=== PATIENT | female | born 1945 | race Caucasian/White ===

== ENCOUNTER 2017-02-07 05:30 | Observation (INO) | payer OTHER, BC ==
[2017-02-07] VITALS (10 sets, daily range): BP systolic 126–140; BP diastolic 47–92
[~2017-02-07] VITALS: Ht 157.5 cm; Wt 79.8 kg
--- NOTE | ~2017-02-07 | H ---
[facility] [address] [place] [address] HISTORY AND PHYSICAL Name: REDRENEKATHLEEN KOCH Room #: 432-P DIS Lexus MLaylaR.#: [id number] Admission: 02/07/17 Attend Phys: Astrid Ford Discharge: 02/08/17 Date of : 45 Report #: [id number] THIS REPORT FOR: //name// For History and Physical, please see office documentation/handwritten note in the patient's medical record. By: 0834 Nish Andrea MD /
--- NOTE | ~2017-02-07 | O ---
[facility] [place] [address] OPERATIVE REPORT Name: RENE MOON Room #: 432-P [facility]..#: [id number] Admission: 02/07/17 Attend Phys: Nish Andrea MD Discharge: Date of : 45 Report #: [id number] THIS REPORT FOR: //name// CC: ADRYAN Andrea DATE OF SERVICE: 02/07/2017 PREOPERATIVE DIAGNOSIS: Stress urinary incontinence and cystocele. POSTOPERATIVE DIAGNOSIS: Stress urinary incontinence and cystocele. PROCEDURE: Pubovaginal sling with placement of Xenform graft and anterior repair. SURGEON: Nish Andrea MD. ANESTHESIA: General. OPERATIVE SUMMARY: The patient was brought to the operating room and administered general anesthesia. The patient was then placed in the lithotomy position. The patient's abdomen, perineum, and vagina were prepped and draped in the usual fashion. The patient received 1 gram IV Ancef preoperatively. A Lam catheter was placed. Local anesthesia using 1% lidocaine with epinephrine was infused into the vaginal midline. A midline incision was then made. Dissection was carried along the anterior fascia out the lateral pelvic sidewall. The endopelvic fascia was taken down using sharp and blunt dissection and the retropubic space was easily developed. The anterior fascia was then imbricated with interrupted 2-0 Vicryl sutures. The Capio Ruben's ligament fixation device was then placed in the retropubic space and Ruben's ligament was engaged with one attempt on either side. A 4 x 7 Xenform graft was pulled into, it was loaded on the Capio sutures using an 18 gauge needle. The graft was then laid down at the bladder and bladder neck and tied down to a tension to provide urethral and bladder support, but not to put any tension on these areas. The graft was secured with 3-0 chromic suture. It was copiously irrigated with antibiotic irrigation. There was excellent hemostasis. Gelfoam gauze was placed in the lateral . The vaginal midline incision was then closed using a running 2-0 Vicryl suture. The urine from the catheter was noted to be clear. The patient tolerated the procedure well and left the operating room in good condition. <ELECTRONICALLY SIGNED> By: Nish Andrea MD 02/08/17 0709 0816 1056 Nish Andrea MD /nt
[~2017-02-07 05:30] MED LIST: ALLOPURINOL 30300 M1 PO; AMLODIPINE BESYL5 MG; ASPIRIN EC81 M1 PO; BACTRIM DS TAB1 EACH PO; CARVEDILOL6.25 MG PO; FLOMAX0.4 MG PO; GLUCOTROL5 MG PO; HUMALOG100 UNIT/1 SUBQ; LANTUS SOL100 UNIT/1 SUBQ; LANTUSSOLASTAR SUBQ; LIPITOR40 MG PO; LOSARTAN-HCTZ1 EAC2 PO; MACROBID 100 M100 M2 PO; METFORMIN HCL500 MG PO; NORVASC 5 MG TAB5 MG PO; PRILOSEC 20 MG20 MG PO; PROTONIX40 M1 PO; TOLTERODINE TART4 MG PO
[2017-02-07 06:41] LABS: HEMATOCRIT 36.8 % (37.0-47.0)
[2017-02-07 06:52] LABS: CREATININE 1.2 mg/dL (0.6-1.0)
[2017-02-07 07:00] LABS: ALBUMIN 3.6 g/dL (3.4-5.0); TOTAL BILIRUBIN 0.4 mg/dL (<0.1-1.0); TOTAL PROTEIN 7.2 g/dL (6.4-8.2)
[2017-02-08 04:30] VITALS: BP 137/52
[2017-02-08 04:35] LABS: HEMOGLOBIN 11.2 gm/dL (12.0-15.0); MCH 29.3 pg (26.0-34.0); MCHC 32.8 g/dL (28.0-37.0); MCV 89.3 fL (80.0-100.0); RBC 3.81 mil/uL (4.20-5.00); RDW 16.5 % (10.5-14.5)
[2017-02-08 07:53] VITALS: BP 126/47
[2017-02-08 15:05] VITALS: BP 122/54
[2017-02-08 17:05] VITALS: BP 122/54
== END 2017-02-08 17:58 | disposition home or self-care (01) ==
LOC: TBA 05:30 → OR 05:30 → TBA 05:31 → 4E 09:23 → OR 09:23 → 4E 09:23 → OR 13:01 → 4E 02-08 17:58
PROVIDERS: Specialist
DX: N39.3 Stress incontinence (female) (male) (principal); N81.10 Cystocele, unspecified; E11.9 Type 2 diabetes mellitus without complications; I10 Essential (primary) hypertension; Z90.710 Acquired absence of both cervix and uterus; Z98.890 Other specified postprocedural states
CPT/HCPCS: 50010; 50101; 50386; 50613; 51321; 56526; 56531; 62110; 62900; 70005

== ENCOUNTER 2017-09-28 00:10 | Inpatient (IN) | payer OTHER, BC ==
[~2017-09-28] VITALS: Ht 157.5 cm; Wt 84.4 kg
--- NOTE | ~2017-09-28 | EKG ---
[address] [place] [address] ELECTROCARDIOGRAM REPORT Name: RENE MOON Room #: 170-6 ADM IN .R.#: [id number] Admission: 09/28/17 Attend Phys: Lexx Tucker Discharge: Date of : 45 Report #: [id number] THIS REPORT FOR: //name// [facility] ED Test Date: 2017-09-28 Test Time: 00:22:28 Pat Name: RENE MOON Department: Room: 170 Gender: F Edging Machine Setter: NICOLAS : 1945 Requested By: Tim Hamilton Order Number: [id number] MD: Tonio Bowles Measurements Intervals [place] Rate: 52 P: 56 KS: 204 QRS: 8 QRSD: 150 T: 22 QT: 509 QTc: 474 Interpretive Statements Sinus rhythm Right bundle branch block Compared to ECG 09/04/2016 15:58:28 No significant changes Electronically Signed On 09-28-2017 8:34:11 FILENET ADMIN by Tonio Bowles [email or web address] <ELECTRONICALLY SIGNED> By: Tonio Bowles MD, [facility] 09/28/17 0834 Tonio Bowles MD, [facility] /EPI
--- NOTE | ~2017-09-28 | H ---
[facility] [address] [place] [address] HISTORY AND PHYSICAL Name: RENE MOON Room #: 422-P ADM IN M.R.#: [id number] Admission: 09/28/17 Attend Phys: Lexx Tucker Discharge: Date of : 45 Report #: [id number] THIS REPORT FOR: //name// CC: Nnamdi Torres CHIEF COMPLAINT: Left ankle and back pain. HISTORY OF PRESENT ILLNESS: The patient is a 72-year-old female presented to the emergency room in the middle of the night after suffering a fall at home. She said for the last several days, maybe 2 weeks, she has had increasing back pain that has been radiating down her left leg. It has become very difficult for her to get up from a chair, bed or walk. Last night she was trying to get up to the bathroom, but had a hard time getting out of bed. Her granddaughter was able to help her up and into the bathroom. However, after about 15-20 minutes on the commode, she did not have the strength to stand up and her granddaughter called for EMS. Before they arrived, the granddaughter was able to help her stand at the edge of the door into the bathroom and that she stepped away to deal with the dogs, the patient lost her balance and fell to the floor. The patient denies any dizziness, lightheadedness, palpitations or any symptoms leading up to the fall, but just remember the next thing she was on the ground. She had more pain in the left ankle and was unable to stand and walk. She denied any loss of consciousness. X-rays have revealed a distal left fibular fracture. She had recently undergone some epidural steroid injections for her back pain and had a recent MRI without any significant change from previous studies. PAST MEDICAL HISTORY: Hypertension, diabetes type 2, GERD, urge incontinence, diverticulosis, chronic back pain due to spinal stenosis with radiculopathy, osteoarthritis, she has had steroid injections. PAST SURGICAL HISTORY: Appendectomy, hysterectomy, and bladder suspension. FAMILY HISTORY: Noncontributory. SOCIAL HISTORY: She lives at home. No chronic alcohol or tobacco use. ALLERGIES: CEPHALEXIN, HYDROCODONE, and METFORMIN. MEDICATIONS: Flomax, Detrol, Humalog with meals, allopurinol, Norvasc, aspirin, Coreg, Hyzaar, Protonix, and Lantus at bedtime. REVIEW OF SYSTEMS: She complains of nausea due to pain medicine. Otherwise, no headache, chest pain, shortness of breath, diarrhea, constipation, dysuria, or syncope. OBJECTIVE: VITAL SIGNS: Temperature 36.6, pulse 72, respirations 18, blood pressure [address] [address] HISTORY AND PHYSICAL Name: RENE MOON Room #: 422-P [facility] IN M.R.#: [id number] Admission: 09/28/17 Attend Phys: Lexx Tucker Discharge: Date of : 45 Report #: [id number] 140/64, and O2 sat 96% on room air. GENERAL: She is awake and alert, lying in the stretcher, in no distress. HEAD AND NECK: Unremarkable. LUNGS: Clear with no wheezing. HEART: Regular without murmur. ABDOMEN: Soft, normoactive bowel sounds. EXTREMITIES: No cyanosis, clubbing, or edema. The left ankle is in a posterior splint. NEUROLOGIC: Cranial nerves intact. Speech is fluent. Motor strength about 3/[address]s were reviewed without acute injury. X-ray of the left ankle shows an oblique distal left fibular fracture with mild displacement. Lab data is fairly unremarkable with creatinine 1.2. ASSESSMENT: 1. Acute left distal fibular fracture. 2. Lumbar spinal stenosis with radiculopathy. 3. Gait disturbance due to the above. 4. Accidental fall. 5. Hypertension. 6. Diabetes type 2. PLAN: She is unable to walk or stand at this point, therefore needs admission to the hospital. Medically, we need to optimize her diabetic control and pursue rehab options. I have spoken to Dr. Jalloh's office to see her in consultation in regards to the fracture, but this likely will be conservative treatment, remains to be seen what level of weightbearing she will be able to maintain. <ELECTRONICALLY SIGNED> By: Fredrick Vera MD 09/29/17 0831 1315 1413 Fredrick Vera MD /nt
--- NOTE | ~2017-09-28 | HC ---
[facility] [address] [place] [address] CONSULTATION Name: RENE MOON Room #: 422-P ADM IN M.R.#: [id number] Admission: 09/28/17 Attend Phys: Lexx Tucker Discharge: Date of : 45 Report #: [id number] THIS REPORT FOR: //name// CC: Nnamdi Torres CHIEF COMPLAINT: Left distal fibula fracture. HISTORY: This originally active and independent 72-year-old female was ambulating at home when she apparently stumbled and may have passed out. She fell injuring the left ankle. She sustained no other apparent injuries. Evaluation here revealed no other apparent significant medical problems. She does have a minimally displaced fracture of left distal fibula. The medial side shows a bit of calcification and old deformity, but no evidence of fracture or ligament injury there. At the time of my evaluation, she is comfortable and is anxious to try to advance activity. She is currently protected in a simple ankle splint. We have reviewed the x-rays and discussed treatment options including either nonsurgical management with cast or boot or surgical management with fixation of the distal fibula fracture. She prefers to avoid any surgery and feels confident she can protect the ankle with limited weightbearing over the coming six weeks. Given this, we have elected to go ahead with a fracture boot and we can start some organized therapy for limited weightbearing ambulation using a walker. I believe she is planning for temporary stay at an assisted living center. I would like to see her back in my office in about 2 weeks for followup x-ray. If there has been further problems or fracture displacement, then we may need to reconsider the option of surgical stabilization. <ELECTRONICALLY SIGNED> By: Fredrick Jalloh MD 09/30/17 1612 1146 2035 Fredrick Jalloh MD /nt
--- NOTE | ~2017-09-28 | D ---
[facility] [address] [place] [address] DISCHARGE SUMMARY Name: RENE MOON Room #: 422-P [facility] IN M.R.#: [id number] Admission: 09/28/17 Attend Phys: Lexx Tucker Discharge: Date of : 45 Report #: [id number] THIS REPORT FOR: //name// CC: Nnamdi Torres FINAL DIAGNOSES: 1. Closed left distal fibula fracture. 2. Accidental fall. 3. Diabetes type 2. 4. Hypertension. 5. Urinary tract infection. 6. Lumbar spinal stenosis. HOSPITAL COURSE: The patient was admitted to the emergency room after a fall at home. X-ray revealed a left distal closed fibula fracture. She was unable to stand or walk due to pain and pain in her back. She said pain in the lumbar spine has been escalating for about a week, and she was having trouble getting up from a chair. Medically, the only other intervention during her stay was that of urinary tract infection. Other home medications were continued. She had Lovenox for DVT prophylaxis. Blood sugars and blood pressure were stable. Dr. Jalloh saw her in consultation and placed her in a Cam walking boot with a 20-pound weight restriction on the left leg, to follow up in 2 weeks. PHYSICAL EXAMINATION: GENERAL: On the day of discharge, she was awake and alert. VITAL SIGNS: Stable. Blood pressure 137/63 and O2 sat 95% on room air. LUNGS: Clear. HEART: Regular. ABDOMEN: Soft, normoactive bowel sounds. EXTREMITIES: No edema with the left ankle in a boot. DISPOSITION: She will transfer to [facility] with diabetic diet. Physical and occupational therapy with a 20-pound weightbearing restriction on the left leg. Signed her transfer medications, I will follow her stay there and will send her back to Dr. Jalloh for followup. <ELECTRONICALLY SIGNED> By: Fredrick Vera MD 10/02/17 0839 0807 0855 Fredrick Vera MD /nt
[2017-09-28 00:13] VITALS: BP 144/57
[2017-09-28] MEDS ORDERED: PREDNISONE 20 M20 MG PO (01:03)
[2017-09-28] MEDS ORDERED: NORFLEX100 MG PO (01:03)
[2017-09-28] MEDS ORDERED: ACETAMINOPHEN-1 EAC1 PO (01:03)
[2017-09-28] MEDS ORDERED: HUMALOG100 UNIT/1 (02:02)
[2017-09-28 02:44] LABS: HEMATOCRIT 34.4 % (37.0-47.0); HEMOGLOBIN 11.6 gm/dL (12.0-15.0); MCHC 33.5 g/dL (28.0-37.0); MCV 89.5 fL (80.0-100.0); RBC 3.85 mil/uL (4.20-5.00); RDW 15.8 % (10.5-14.5); WBC 13.5 thou/uL (4.0-11.0)
[2017-09-28 03:01] LABS: ANION GAP 10 mmol/L (7-16); BUN 38 mg/dL (7-18); CHLORIDE 104 mmol/L (98-107); CO2 25 mmol/L (21-32); CREATININE 1.2 mg/dL (0.6-1.0); GLUCOSE 125 mg/dL (74-106); POTASSIUM 4.3 mmol/L (3.5-5.1); SODIUM 139 mmol/L (136-145)
[2017-09-28 03:05] LABS: TROPONIN-I < 0.04 ng/mL (<0.06)
[2017-09-28 04:14] LABS: URINE BILIRUBIN NEGATIVE (Negative); URINE BLOOD NEGATIVE (Negative); URINE CLARITY CLEAR; URINE COLOR YELLOW; URINE GLUCOSE-RANDOM* NEGATIVE (Negative); URINE KETONES NEGATIVE (Negative); URINE NITRITE-REFLEX NEGATIVE (Negative); URINE PROTEIN (DIPSTICK) NEGATIVE (Negative); URINE SPECIFIC GRAVITY 1.015 (1.005-1.035); URINE UROBILINOGEN 0.2 E.U./dl (0.2-1.0)
[2017-09-28 04:16] LABS: URINE LEUKOCYTES-REFLEX 1+ (Negative)
[2017-09-28 04:33] LABS: SQUAMOUS 0-3 Few /LPF (0-3)
[2017-09-28 04:34] LABS: BACTERIA-REFLEX >30 Many /HPF (None Seen); CASTS None Seen /LPF (None Seen); CRYSTALS None Seen /LPF (None Seen); URINE RBC 0-2 Rare /HPF (0-2); WBC CLUMPS Rare (None Seen)
[2017-09-28 16:47] VITALS: BP 129/50
[2017-09-28 17:11] VITALS: BP 127/55
[2017-09-28 20:00] VITALS: BP 144/51
[2017-09-29 04:00] VITALS: BP 152/59
[2017-09-29 06:19] LABS: CALCIUM 8.3 mg/dL (8.5-10.1); POTASSIUM 4.3 mmol/L (3.5-5.1)
[2017-09-29 06:28] LABS: HEMATOCRIT 33.4 % (37.0-47.0); HEMOGLOBIN 11.2 gm/dL (12.0-15.0); MCH 30.9 pg (26.0-34.0); MCHC 33.4 g/dL (28.0-37.0); MCV 92.6 fL (80.0-100.0); RBC 3.61 mil/uL (4.20-5.00); RDW 16.2 % (10.5-14.5); WBC 7.6 thou/uL (4.0-11.0)
[2017-09-29 08:00] VITALS: BP 154/56
[2017-09-29 16:00] VITALS: BP 148/53
[2017-09-29 20:00] VITALS: BP 146/58
[2017-09-30 04:14] VITALS: BP 138/48
[2017-09-30 07:40] VITALS: BP 148/50
[2017-09-30 15:25] VITALS: BP 147/58
[2017-09-30 20:59] VITALS: BP 145/64
[2017-10-01 05:06] VITALS: BP 137/63
[2017-10-01] MEDS ORDERED: CIPRO500 MG PO (08:02)
[2017-10-01] MEDS ORDERED: ACETAMINOPHEN-1 EAC1 PO (08:03)
[2017-10-01] MEDS ORDERED: ACETAMINOPHEN325 M1 PO (08:03)
[2017-10-01] MEDS ORDERED: NOVOLOG100 UNIT/1 SUBQ (08:04)
[2017-10-01] MEDS ORDERED: LEVEMIR SUBQ (08:04)
[2017-10-01 08:30] VITALS: BP 142/63
[2017-10-01 15:30] VITALS: BP 142/84
[2017-10-01 20:00] VITALS: BP 135/54
[2017-10-02 04:30] VITALS: BP 130/49
[2017-10-02 08:00] VITALS: BP 139/55
[2017-10-02] MEDS ORDERED: LEVEMIR SUBQ (08:39)
[2017-10-02] MEDS ORDERED: NOVOLOG100 UNIT/1 SUBQ (08:39)
[2017-10-02 16:00] VITALS: BP 142/48
[2017-10-02 19:43] VITALS: BP 137/51
[2017-10-03 04:13] VITALS: BP 141/56
[2017-10-03 07:35] VITALS: BP 145/58
[2017-10-03 15:55] VITALS: BP 148/60
[2017-10-03 19:36] VITALS: BP 119/45
[2017-10-04 04:05] VITALS: BP 136/48
[2017-10-04 08:00] VITALS: BP 154/53
[2017-10-04 08:27] VITALS: BP 154/53
== END 2017-10-04 11:21 | DRG 563 ==
LOC: ER 00:10 → 4E 02:24 → EROBS 02:24 → 4E 17:36
PROVIDERS: Emergency Medicine; Internal Medicine
PROC: 2W3RX1Z Immobilization of Left Lower Leg using Splint (ICD-10-PCS; principal; 2017-09-28)
DX: S82.832A Other fracture of upper and lower end of left fibula, initial encounter for closed fracture (principal); N39.0 Urinary tract infection, site not specified; E78.00 Pure hypercholesterolemia, unspecified; M19.90 Unspecified osteoarthritis, unspecified site; I10 Essential (primary) hypertension; K21.9 Gastro-esophageal reflux disease without esophagitis; M10.9 Gout, unspecified; K57.10 Diverticulosis of small intestine without perforation or abscess without bleeding; Z77.22 Contact with and (suspected) exposure to environmental tobacco smoke (acute) (chronic); G89.29 Other chronic pain; M54.9 Dorsalgia, unspecified; M54.16 Radiculopathy, lumbar region; M48.061 Spinal stenosis, lumbar region without neurogenic claudication; W18.39XA Other fall on same level, initial encounter; E11.9 Type 2 diabetes mellitus without complications; Z88.1 Allergy status to other antibiotic agents; Z88.8 Allergy status to other drugs, medicaments and biological substances; Z88.6 Allergy status to analgesic agent; Y99.8 Other external cause status; Y92.89 Other specified places as the place of occurrence of the external cause; Y93.89 Activity, other specified; Z90.49 Acquired absence of other specified parts of digestive tract; Z90.710 Acquired absence of both cervix and uterus; Z79.899 Other long term (current) drug therapy
CPT/HCPCS: 10084

== ENCOUNTER → 2018-03-07 | Outpatient (CLI) | payer OTHER, BC ==
[~2018-03-07] MED LIST changes: +ACETAMINOPHEN-1 EAC1 PO; +ACETAMINOPHEN325 M1 PO; +CIPRO500 MG PO; +HUMALOG100 UNIT/1; +LEVEMIR SUBQ; +NORFLEX100 MG PO; +NOVOLOG100 UNIT/1 SUBQ; +PREDNISONE 20 M20 MG PO
== END ==
LOC: ULTRA 10:27
DX: M79.662 Pain in left lower leg (principal); M79.89 Other specified soft tissue disorders; I87.1 Compression of vein

== ENCOUNTER 2019-11-22 23:35 | Inpatient (IN) | payer OTHER, BC ==
[~2019-11-22] VITALS: Ht 157.5 cm; Wt 83.9 kg
[2019-11-23] VITALS (8 sets, daily range): BP systolic 121–201; BP diastolic 44–69
[2019-11-23] MEDS ORDERED: HUMALOG100 UNIT/1 SUBQ (00:10)
[2019-11-23] MEDS ORDERED: LANTUS SUBQ (00:11)
[2019-11-23] MEDS ORDERED: NORVASC 2.5 MG2.5 M1 PO (00:12)
[2019-11-23] MEDS ORDERED: DETROL LA2 MG PO (00:12)
[2019-11-23] MEDS ORDERED: LOSARTAN-HCTZ1 EAC3 PO (00:13)
[2019-11-23] MEDS ORDERED: TRAMADOL 50 MG50 MG PO (00:13)
[2019-11-23 00:33] LABS: ABSOLUTE NEUTROPHILS 7.1 thou/uL (1.4-8.2); BASOPHILS 0.4 % (0.0-2.0); EOSINOPHILS 1.6 % (0.0-3.0); HEMATOCRIT 34.6 % (37.0-47.0); HEMOGLOBIN 11.1 gm/dL (12.0-15.0); LYMPHOCYTES 16.7 % (24.0-44.0); MCH 29.5 pg (26.0-34.0); MCHC 32.2 g/dL (28.0-37.0); MCV 91.6 fL (80.0-100.0); MONOCYTES 5.3 % (1.0-8.0); PLATELET COUNT 192 thou/uL (150-400); RBC 3.78 mil/uL (4.20-5.00); RDW 17.1 % (10.5-14.5); WBC 9.4 thou/uL (4.0-11.0)
[2019-11-23 00:45] LABS: ANION GAP 8 mmol/L (7-16); BUN 46 mg/dL (7-18); CALCIUM 9.2 mg/dL (8.5-10.1); CHLORIDE 103 mmol/L (98-107); CO2 25 mmol/L (21-32); CREATININE 1.6 mg/dL (0.6-1.0); GLUCOSE 152 mg/dL (74-106); POTASSIUM 4.5 mmol/L (3.5-5.1); SODIUM 136 mmol/L (136-145)
[2019-11-23 00:48] LABS: TROPONIN-I <0.06 ng/mL (<0.06)
--- NOTE | 2019-11-23 05:51 | NUR ---
RECEIVED REPORT FROM ER NURSE. PT ARRIVED TO ROOM AROUND 0240. SON AND DIL AT BEDSIDE. ADMISSION HX AND ASSESSMENT COMPLETED CHARTED. PT C/O MIDSTERNAL CHEST PAIN, A HEADACHE, AND NAUSEA UPON ADMISSION. NOTIFIED DR ERICH GARDUNO. ORDERS RECEIVED FOR NAUSEA AND PAIN MEDICATION. PT REQUESTED TO TAKE NAUSEA MEDICATION FIRST AND WAIT ON PAIN MEDICATION. COOL CLOTH APPLIED TO FOREHEAD. PT WAS ABLE TO GO TO SLEEP. AROUND 0500, PT WAS OFFERED PAIN MEDICATION AGAIN, BUT SHE DECLINED. PT STATED NAUSEA HAS GREATLY IMPROVED. VSS. FALL PRECAUTIONS IN PLACE. PROGRESSING SLOWLY TOWARD POC GOALS.
--- NOTE | 2019-11-23 16:28 | EKG ---
[facility] [place] [address] ELECTROCARDIOGRAM REPORT Name: RENE MOON Room #: 359-P ADM IN M.R.#: [id number] Admission: 11/23/19 Attend Phys: Lexx Tucker Discharge: Date of : 45 Report #: [id number] THIS REPORT FOR: cc: Nnamdi Torrse MD, Christopher B. MD Lundgren,Tonio Steele MD [facility] ~ THIS REPORT FOR: //name// [facility] ED Test Date: 2019-11-23 Test Time: 00:08:56 Pat Name: RENE MOON Department: Room: 359 Gender: F Clinic Md Associate: RAO : 1945 Requested By: Matthias Wayne Order Number: [id number] MD: Tonio Bowles Measurements Intervals [place] Rate: 61 P: 38 [place]: 226 QRS: -20 QRSD: 146 T: 26 QT: 463 QTc: 467 Interpretive Statements Sinus rhythm Prolonged [place] interval Right bundle branch block Compared to ECG 09/28/2017 00:22:28 No significant change was found Electronically Signed On 11-23-2019 16:27:48 GIG TENDER by Tonio Bowles [email or web address] <ELECTRONICALLY SIGNED> By: Tonio Bowles MD, [facility] 11/23/19 1627 0008 0008 Tonio Bowles MD, [facility] /EPI
[2019-11-24 00:58] VITALS: BP 141/48
--- NOTE | 2019-11-24 01:05 | NUR ---
Pt is resting quietly presently. NO s/s distress. VSS Afebrile. HR 56 SB on the monitor. Denied chest pain.
[2019-11-24 03:25] VITALS: BP 154/51
[2019-11-24 05:00] LABS: CALCIUM 8.5 mg/dL (8.5-10.1); CREATININE 1.2 mg/dL (0.6-1.0); POTASSIUM 4.7 mmol/L (3.5-5.1)
--- NOTE | 2019-11-24 05:07 | NUR ---
Pt resting quietly. NO s/s distress
--- NOTE | 2019-11-24 05:42 | NUR ---
Bladder scanned pt 333, and 374 ml in bladder.
[2019-11-24 07:27] VITALS: BP 155/50
--- NOTE | 2019-11-24 07:56 | H ---
[facility] [address] [place] [address] HISTORY AND PHYSICAL Name: RENE MOON Room #: 359-P ADM IN M.R.#: [id number] Admission: 11/23/19 Attend Phys: Lexx Tucker Discharge: Date of : 45 Report #: [id number] THIS REPORT FOR: cc: Nnamdi Torres MD,Fredrick Yuan MD, MD ~ CC: Nnamdi Torres DATE OF SERVICE: 11/23/2019 CHIEF COMPLAINT: Chest pain. HISTORY OF PRESENT ILLNESS: The patient is a 74-year-old female who was admitted to the Emergency Room after developing chest pain. She was seen in the office for routine visit yesterday or due to her chronic complaints of back pain. She was given a prescription for tramadol. She took one dose around noon and a second dose around 5. She said after the second dose she experienced some pain across her chest and upper back and lower back. She also felt heaviness or tightness in her throat as though it was difficult to breathe or swallow. She said she felt like her throat was closing off like she may be having an allergic reaction. She had no fever, chills, diaphoresis, radiating pain, nausea, vomiting or tingling. There was no pain up into the jaw up into the shoulders or back. PAST MEDICAL HISTORY: Fibromyalgia; chronic low back pain; dyslipidemia; osteoarthritis; hypertension; gout; diabetes type 2, insulin requiring; diverticulosis and spinal stenosis. PAST SURGICAL HISTORY: Unremarkable. FAMILY HISTORY: Noncontributory. SOCIAL HISTORY: She lives at home. No chronic alcohol or tobacco use. ALLERGIES: KEFLEX, HYDROCODONE and METFORMIN. She described more of a side effect to HYDROCODONE and true drug allergy. MEDICATIONS: Aspirin, Humalog, Lantus, Detrol, Norvasc, Hyzaar, tramadol, allopurinol, Coreg, Protonix and Flomax. REVIEW OF SYSTEMS: Denies headache, chest pain, shortness of breath, abdominal pain, nausea, vomiting, diarrhea, constipation, dysuria, syncope. OBJECTIVE: VITAL SIGNS: Temperature 36.6, pulse 58, respirations 18, blood pressure 150/63, O2 sat 98% on room air. [address] [address] HISTORY AND PHYSICAL Name: RENE MOON Room #: [address] [place] [address] IN .R.#: [id number] Admission: 11/23/19 Attend Phys: Lexx Tucker Discharge: Date of : 45 Report #: [id number] GENERAL: She is awake and alert, in no distress. HEAD AND NECK: Unremarkable. LUNGS: Clear. HEART: Regular. ABDOMEN: Soft, normoactive bowel sounds. EXTREMITIES: No edema. NEUROLOGIC: Motor strength 4/5 throughout. LABORATORY DATA: Creatinine is 1.6. Troponin was negative. Chest x-ray negative. ASSESSMENT: 1. Chest pain, possible drug side effect. 2. Lumbar spinal stenosis. 3. Fibromyalgia. 4. Chronic low back pain. 5. Hypertension. 6. Diabetes type 2. 7. Prerenal azotemia due to medication effect. PLAN: I will discontinue the tramadol for now. She has had no symptoms overnight. EKG was unremarkable. Troponin negative. Clinically, it seems less likely of acute coronary syndrome. We will continue medications from home with holding the Hyzaar at this point and repeat her lab work. <ELECTRONICALLY SIGNED> By: Fredrick Vera MD 11/24/19 0756 1009 1032 Fredrick Vera MD /nt
[2019-11-24 09:23] VITALS: BP 155/50
--- NOTE | 2019-11-24 09:35 | NUR ---
Discharge instructions gone over with PT and son at the beside. Both verbalized understanding and expressed eagerness to leave. PT left unit via wheelchair with Ronald MENDEZ.
[2019-11-24 09:37] VITALS: BP 155/50
--- NOTE | 2019-11-26 13:13 | D ---
[facility] [address] [place] [address] DISCHARGE SUMMARY Name: RENE MOON Room #: 359-P [facility] IN M.R.#: [id number] Admission: 11/23/19 Attend Phys: Lexx Tucker Discharge: 11/24/19 Date of : 45 Report #: [id number] THIS REPORT FOR: cc: Nnamdi Torres MD, Christopher B. MD Peters, David W. MD ~ THIS REPORT FOR: //name// CC: Nnamdi Torres FINAL DIAGNOSES: 1. Chest pain. 2. Diabetes type 2. 3. Hypertension. 4. Prerenal azotemia. HOSPITAL COURSE: The patient was admitted to the Emergency Room after developing chest pain following 2 doses of tramadol. She described what may have been an allergic type reaction to tramadol with a sensation of difficulty breathing with swelling of her throat or what she describes as "her throat closing" and some heaviness across her chest. She came to the Emergency Room, her EKG was unremarkable and troponin was negative. She was treated symptomatically and watched 2 nights with no further chest pain. No tachyarrhythmias, usual medications were continued. Prerenal azotemia was noted likely from hydrochlorothiazide. She was walking the halls with no symptoms and remained pain free the rest of her stay. PHYSICAL EXAMINATION: GENERAL: On the day of discharge, she was awake and alert. VITAL SIGNS: Stable vital signs. LUNGS: Clear. HEART: Regular. ABDOMEN: Soft, normoactive bowel sounds. EXTREMITIES: No edema. LABORATORY DATA: Follow up creatinine was improved. DISPOSITION: To be discharged to home with diabetic diet, activity as tolerated, resume all home medications and follow up with Dr. Torres in 1 week. <ELECTRONICALLY SIGNED> By: Fredrick Vera MD 11/26/19 1313 0756 0800 Fredrick Vera MD /nt
== END 2019-11-24 09:40 | disposition home or self-care (01) | DRG 313 ==
LOC: ER 23:35 → EROBS 11-23 01:24 → 3W 11-23 01:24
PROVIDERS: Emergency Medicine; Internal Medicine Geriatric Medicine; ADMIT Internal Medicine
DX: R07.9 Chest pain, unspecified (principal); M54.9 Dorsalgia, unspecified; G89.29 Other chronic pain; M79.7 Fibromyalgia; E78.00 Pure hypercholesterolemia, unspecified; M16.10 Unilateral primary osteoarthritis, unspecified hip; I10 Essential (primary) hypertension; K21.9 Gastro-esophageal reflux disease without esophagitis; M10.9 Gout, unspecified; M19.90 Unspecified osteoarthritis, unspecified site; R79.89 Other specified abnormal findings of blood chemistry; E11.9 Type 2 diabetes mellitus without complications; K57.90 Diverticulosis of intestine, part unspecified, without perforation or abscess without bleeding; M48.061 Spinal stenosis, lumbar region without neurogenic claudication; E78.5 Hyperlipidemia, unspecified; Z79.82 Long term (current) use of aspirin; Z87.440 Personal history of urinary (tract) infections; Z90.89 Acquired absence of other organs; Z90.710 Acquired absence of both cervix and uterus; Z79.899 Other long term (current) drug therapy; Z88.1 Allergy status to other antibiotic agents; Z88.5 Allergy status to narcotic agent; Z88.8 Allergy status to other drugs, medicaments and biological substances
CPT/HCPCS: 10879

== ENCOUNTER → 2019-12-17 | Outpatient (CLI) | payer OTHER, BC ==
[~2019-12-17] VITALS: Ht 157.5 cm; Wt 85.2 kg
[~2019-12-17] MED LIST changes: +CLOPIDOGREL75 MG PO; +DETROL LA2 MG PO; +LANTUS SUBQ; +LOSARTAN-HCTZ1 EAC3 PO; +NORVASC 2.5 MG2.5 M1 PO; +TRAMADOL 50 MG50 MG PO
[2019-12-17 07:48] VITALS: BP 189/77
== END | disposition home or self-care (01) ==
LOC: CATH 06:49
DX: I70.211 Atherosclerosis of native arteries of extremities with intermittent claudication, right leg (principal); I12.9 Hypertensive chronic kidney disease with stage 1 through stage 4 chronic kidney disease, or unspecified chronic kidney disease; E11.22 Type 2 diabetes mellitus with diabetic chronic kidney disease; I25.10 Atherosclerotic heart disease of native coronary artery without angina pectoris; K21.9 Gastro-esophageal reflux disease without esophagitis; M10.9 Gout, unspecified; M19.90 Unspecified osteoarthritis, unspecified site; M79.7 Fibromyalgia; Z98.890 Other specified postprocedural states; Z79.899 Other long term (current) drug therapy; Z90.49 Acquired absence of other specified parts of digestive tract; Z90.710 Acquired absence of both cervix and uterus; Z90.711 Acquired absence of uterus with remaining cervical stump; Z79.4 Long term (current) use of insulin

== ENCOUNTER → 2020-01-18 | Outpatient (CLI) | payer OTHER, BC | LOC: SJCVC 11:02 | DX: R94.31 Abnormal electrocardiogram [ECG] [EKG] (principal); R00.1 Bradycardia, unspecified; I45.10 Unspecified right bundle-branch block; I25.10 Atherosclerotic heart disease of native coronary artery without angina pectoris; I10 Essential (primary) hypertension; E78.5 Hyperlipidemia, unspecified; E11.51 Type 2 diabetes mellitus with diabetic peripheral angiopathy without gangrene; I65.23 Occlusion and stenosis of bilateral carotid arteries; Z79.4 Long term (current) use of insulin ==

== ENCOUNTER → 2020-03-18 | Outpatient (CLI) | payer OTHER, BC | LOC: SJCVC 11:12 | PROVIDERS: ATTEND Internal Medicine | DX: I45.10 Unspecified right bundle-branch block (principal); R00.1 Bradycardia, unspecified; I25.10 Atherosclerotic heart disease of native coronary artery without angina pectoris; I10 Essential (primary) hypertension; I73.9 Peripheral vascular disease, unspecified; E78.5 Hyperlipidemia, unspecified; I65.23 Occlusion and stenosis of bilateral carotid arteries; E11.51 Type 2 diabetes mellitus with diabetic peripheral angiopathy without gangrene; Z79.4 Long term (current) use of insulin; K21.9 Gastro-esophageal reflux disease without esophagitis; M10.9 Gout, unspecified; Z90.710 Acquired absence of both cervix and uterus; Z79.899 Other long term (current) drug therapy ==

== ENCOUNTER → 2020-03-27 | Outpatient (CLI) | payer OTHER, BC ==
[~2020-03-27] MED LIST changes: +CARVEDILOL6.25 M1 PO; +PLAVIX 75 MG TA75 MG PO
== END ==
LOC: SJCVCIMAG 09:02
PROVIDERS: ATTEND Nuclear Medicine Nuclear Cardiology
DX: E11.51 Type 2 diabetes mellitus with diabetic peripheral angiopathy without gangrene (principal); I73.9 Peripheral vascular disease, unspecified; I25.10 Atherosclerotic heart disease of native coronary artery without angina pectoris; I10 Essential (primary) hypertension; E78.00 Pure hypercholesterolemia, unspecified; Z79.4 Long term (current) use of insulin; Z79.899 Other long term (current) drug therapy

== ENCOUNTER → 2020-04-04 | Outpatient (CLI) | payer OTHER, BC | LOC: LAB 09:26 | PROVIDERS: ATTEND Student in an Organized Health Care Education/Training Program | DX: Z01.812 Encounter for preprocedural laboratory examination (principal); Z11.59 Encounter for screening for other viral diseases ==

== ENCOUNTER 2020-04-10 09:50 | Inpatient (IN) | payer OTHER, BC ==
[2020-04-04 10:37] LABS: ABSOLUTE NEUTROPHILS 3.4 thou/uL (1.4-8.2); BASOPHILS 0.9 % (0.0-2.0); EOSINOPHILS 3.7 % (0.0-3.0); HEMATOCRIT 33.3 % (37.0-47.0); MCH 30.3 pg (26.0-34.0); MCHC 33.1 g/dL (28.0-37.0); MCV 91.5 fL (80.0-100.0); MONOCYTES 6.8 % (1.0-8.0); PLATELET COUNT 166 thou/uL (150-400); POLYS 60.6 % (36.0-66.0); RBC 3.64 mil/uL (4.20-5.00); RDW 17.6 % (10.5-14.5); WBC 5.6 thou/uL (4.0-11.0)
[2020-04-04 10:53] LABS: APTT 24.5 Seconds (24.5-32.8)
[2020-04-04 10:59] LABS: ALBUMIN 3.3 g/dL (3.4-5.0); CALCIUM 8.2 mg/dL (8.5-10.1); CREATININE 1.4 mg/dL (0.6-1.0); POTASSIUM 4.1 mmol/L (3.5-5.1); TOTAL BILIRUBIN 0.4 mg/dL (0.2-1.0); TOTAL PROTEIN 6.7 g/dL (6.4-8.2)
[2020-04-04 11:23] LABS: URINE BILIRUBIN NEGATIVE (Negative); URINE BLOOD TRACE (Negative); URINE COLOR YELLOW; URINE GLUCOSE-RANDOM* NEGATIVE (Negative); URINE KETONES NEGATIVE (Negative); URINE LEUKOCYTES-REFLEX 1+ (Negative); URINE NITRITE-REFLEX NEGATIVE (Negative); URINE PROTEIN (DIPSTICK) 2+ (Negative); URINE SPECIFIC GRAVITY 1.025 (1.005-1.035); URINE UROBILINOGEN 0.2 E.U./dl (0.2-1.0)
[2020-04-04 11:24] LABS: URINE CLARITY SL HAZY
[2020-04-04 11:28] LABS: BACTERIA-REFLEX >30 Many /HPF (None Seen); CRYSTALS None Seen /LPF (None Seen); SQUAMOUS >10 Many /LPF (0-3); URINE RBC 0-2 Rare /HPF (0-2); URINE WBC-REFLEX >25 Many /HPF (0-5)
[2020-04-05 00:06] LABS: GLYCOHEMOGLOBIN (HGB A1C) 6.1 % (4.8-5.6)
[~2020-04-10] VITALS: Ht 157.5 cm; Wt 88.0 kg
--- NOTE | ~2020-04-10 | HC ---
[facility] [address] [place] [address] CONSULTATION Name: RENE MOON Room #: 212-P [facility] IN M.R.#: [id number] Admission: 04/29/20 Attend Phys: Donato Willis MD Discharge: 05/05/20 Date of : 45 Report #: [id number] THIS REPORT FOR: cc: Nnamdi Torres MD,Fredrick Mcrae MD, MD ~ CC: Nnamdi Willis DATE OF SERVICE: 05/05/2020 HISTORY OF PRESENT ILLNESS: This is a 74-year-old white female who was admitted with coronary artery disease, unresponsive to conservative measures. She underwent coronary artery bypass grafting on 04/29/2020. She has had some problems with some acute renal insufficiency, question of acute tubular necrosis, which is being monitored. This is noted to be improving. She has some postoperative anemia, history of hypertension, and diabetes mellitus. She has a prior history of neurogenic bladder with recurrent urinary tract infections and herself. We are seeing her in rehabilitation medicine consultation. PAST MEDICAL HISTORY: Includes peripheral vascular disease, status post superficial femoral artery stenting, history of UTI, fibromyalgia, and gout. MEDICATIONS: Please see the full medication listing. ALLERGIES: As noted. HABITS: Please see the listing as noted. SOCIAL HISTORY: Lives in a house with , one step in. Grandson is also there. She has closely involved son. She was premorbidly ambulatory without gait aids. REVIEW OF SYSTEMS: Did not offer any current complaints of chest pain, shortness of breath, or abdominal discomfort. PHYSICAL EXAMINATION: GENERAL: She is a pleasant 74-year-old overweight white female, in no obvious distress. VITAL SIGNS: Last recorded temperature 97.6, pulse 90, respirations 18, blood pressure 141/46. The patient is alert. HEENT: Appeared to be benign. NEUROLOGIC: Cranial nerves are grossly intact. Facies are symmetric. EXTREMITIES: He has functional range of motion of both upper extremities. Strength is grade 4-/5. I just did a limited testing as she has the [facility] [address] [place] [address] CONSULTATION Name: RENE MOON Room #: 212-P [facility] IN M.R.#: [id number] Admission: 04/29/20 Attend Phys: Donato Willis MD Discharge: 05/05/20 Date of : 45 Report #: [id number] precautions. Her midline sternal incision is dressed. There is no focal calf swelling. Gallbladder examination deferred. Lower extremities, no focal calf swelling. Trace to no distal lower extremity edema. Strength is probably a grade 4+/5. She does need a little min assist with standing, but then once up, is able to ambulate and actually ambulated 80 feet without an assistive device, total was about 120 feet. ASSESSMENT: A 74-year-old white female with the following problem list: 1. Generalized weakness and debilitation. 2. Coronary artery disease, status post coronary artery bypass grafting. 3. Acute renal insufficiency, which is improving. 4. Hypertension. 5. Postop anemia. 6. Neurogenic bladder with recurrent urinary tract infections. 7. Diabetes mellitus. 8. Peripheral vascular disease. 9. History of fibromyalgia. 10. History of gout. PLAN: The patient appears to be doing better from a functional mobility and ADLs standpoint. Would anticipate that she should be able to return directly home without needing an acute in-hospital inpatient rehabilitation stay as she further medically stabilizes. Thank you for asking us to assist in this patient's stay. By: 1123 [id number] Fredrick Smith MD /PMT
[2020-04-19] MEDS ORDERED: CARVEDILOL12.5 MG PO (09:30)
[2020-04-19] MEDS ORDERED: IMDUR 60 MG TAB60 M1 PO (09:30)
[2020-04-19] MEDS ORDERED: NITROSTAT0.4 M1 SUBLING (09:33)
[2020-04-21] MEDS ORDERED: CARVEDILOL12.5 MG PO (15:46)
[2020-04-21] MEDS ORDERED: ISOSORBIDE MONO60 M1 PO (16:00)
[2020-04-24] MEDS ORDERED: GABAPENTIN100 MG PO (13:08)
[2020-04-24 13:11] LABS: URINE BILIRUBIN NEGATIVE (Negative); URINE BLOOD NEGATIVE (Negative); URINE CLARITY CLEAR; URINE COLOR YELLOW; URINE GLUCOSE-RANDOM* NEGATIVE (Negative); URINE KETONES NEGATIVE (Negative); URINE LEUKOCYTES-REFLEX 1+ (Negative); URINE NITRITE-REFLEX NEGATIVE (Negative); URINE PROTEIN (DIPSTICK) 2+ (Negative); URINE SPECIFIC GRAVITY 1.025 (1.005-1.035); URINE UROBILINOGEN 0.2 E.U./dl (0.2-1.0)
[2020-04-24 14:07] LABS: BACTERIA-REFLEX >30 Many /HPF (None Seen); CASTS None Seen /LPF (None Seen); CRYSTALS None Seen /LPF (None Seen); SQUAMOUS 0-3 Few /LPF (0-3); URINE WBC-REFLEX >25 Many /HPF (0-5)
[2020-04-24 14:08] LABS: URINE RBC None Seen /HPF (0-2)
[2020-04-24 15:13] LABS: ABSOLUTE NEUTROPHILS 3.3 thou/uL (1.4-8.2); BASOPHILS 0.6 % (0.0-2.0); EOSINOPHILS 3.3 % (0.0-3.0); HEMATOCRIT 28.3 % (37.0-47.0); HEMOGLOBIN 9.2 gm/dL (12.0-15.0); LYMPHOCYTES 25.1 % (24.0-44.0); MCHC 32.6 g/dL (28.0-37.0); MCV 92.1 fL (80.0-100.0); MONOCYTES 7.8 % (1.0-8.0); PLATELET COUNT 149 thou/uL (150-400); POLYS 63.2 % (36.0-66.0); RBC 3.07 mil/uL (4.20-5.00); RDW 17.7 % (10.5-14.5); WBC 5.2 thou/uL (4.0-11.0)
[2020-04-24 15:29] LABS: APTT 27.9 Seconds (24.5-32.8); PROTIME 10.3 Seconds (9.3-11.4)
[2020-04-24 15:32] LABS: ALBUMIN 3.1 g/dL (3.4-5.0); CALCIUM 8.2 mg/dL (8.5-10.1); CREATININE 1.4 mg/dL (0.6-1.0); POTASSIUM 4.5 mmol/L (3.5-5.1); TOTAL BILIRUBIN 0.2 mg/dL (0.2-1.0); TOTAL PROTEIN 6.3 g/dL (6.4-8.2)
[2020-04-25 04:06] LABS: GLYCOHEMOGLOBIN (HGB A1C) 5.8 % (4.8-5.6)
--- NOTE | 2020-04-25 09:07 | EKG ---
[facility] [address] [place] [address] ELECTROCARDIOGRAM REPORT Name: RENE MOON Room #: PRE IN M.R.#: [id number] Admission: Attend Phys: Donato Willis MD Discharge: Date of : 45 Report #: [id number] THIS REPORT FOR: cc: Nnamdi Torres MD, Christopher B. MD Lundgren,Tonio Steele MD [facility] ~ THIS REPORT FOR: //name// [facility] Test Date: 2020-04-24 Test Time: 13:35:06 Pat Name: RENE MOON Department: Room: Gender: F Fire Adjuster: allan : 1945 Requested By: Donato Willis Order Number: [id number] MD: Tonio Bowles Measurements Intervals [place] Rate: 49 P: 60 [place]: 153 QRS: -12 QRSD: 133 T: 23 QT: 476 QTc: 430 Interpretive Statements Sinus bradycardia Right bundle branch block Compared to ECG 04/18/2020 07:36:16 No significant change was found Electronically Signed On 04-25-2020 9:07:04 CDT by Tonio Bowles [email or web address] <ELECTRONICALLY SIGNED> By: Tonio Bowles MD, [facility] 04/25/20 0907 1335 1335 Tonio Bowles MD, [facility] /EPI
[2020-04-29] VITALS (23 sets, daily range): BP systolic 89–154; BP diastolic 42–55
--- NOTE | 2020-04-29 07:40 | HC ---
[facility] [address] [place] [address] CONSULTATION Name: RENE MOON Room #: 150-1 ADM IN M.R.#: [id number] Admission: 04/29/20 Attend Phys: Donato Willis MD Discharge: Date of : 45 Report #: [id number] THIS REPORT FOR: cc: Nnamdi Torres MD,Tonio Martinez MD, MD [facility] ~ CC: Nnamdi Willis DATE OF SERVICE: 04/29/2020 REASON FOR VISIT: Coronary artery disease. HISTORY OF PRESENT ILLNESS: The patient is a 74-year-old woman with hypertension, diabetes, dyslipidemia, peripheral vascular disease with bilateral SFA interventions and multivessel coronary artery disease with normal ejection fraction. She now presents for elective coronary artery bypass grafting. The patient has had a complicated past couple of months with the identification of severe bilateral peripheral disease with atherectomy and stenting. Coronary angiography in 11/2019 demonstrated multivessel disease and normal ejection fraction, although due to COVID issues at that time, her surgery has been treated medically with plans for bypass surgery for which she now presents. She has been experiencing limiting exertional breathlessness. No heart failure symptoms including orthopnea, paroxysmal nocturnal dyspnea, or lower extremity edema. No history of palpitations, near syncope or syncope. She was admitted about 10 days ago with renal insufficiency, likely related to Bactrim use for a urinary tract infection. Her kidney function normalized. She has a history of diabetes, hypertension and dyslipidemia. There is a family history of premature coronary artery disease. No history of tobacco dependency. ALLERGIES: KEFLEX, LORTAB, TRAMADOL. PAST MEDICAL HISTORY: Medical records have been reviewed and include ankle fracture with surgery, hysterectomy, bilateral knee arthroscopy, hypertension, diabetes, dyslipidemia, reflux disease, gout, overactive bladder. MEDICATIONS: Allopurinol 300 mg daily, aspirin 81 mg daily, atorvastatin 40 mg daily, carvedilol 6.25 mg twice daily, Plavix, Neurontin 100 mg 3 times a day, Lantus 33 units at night, Humalog 12 units 3 times a day, losartan HCT 100/12.5 one daily, Protonix 20 mg daily, Flomax 0.4 mg daily as her Coreg dose should be 12.5 mg twice daily. SOCIAL HISTORY: She is nonsmoker, nondrinker. [address] [address] CONSULTATION Name: RENE MOON Room #: 150-1 ADM IN M.R.#: [id number] Admission: 04/29/20 Attend Phys: Donato Willis MD Discharge: Date of : 45 Report #: [id number] FAMILY HISTORY: Notable for peripheral vascular disease and coronary artery disease. REVIEW OF SYSTEMS: All systems negative except as that noted above. PHYSICAL EXAMINATION: GENERAL: A pleasant woman in no distress. VITAL SIGNS: Blood pressure is 150/80, heart rate of 50 and regular, 5 feet 2 inches tall, 84 kilos. HEENT: There are neither xanthelasma, subcutaneous xanthomata, oral mucosal, digital cyanosis or kyphoscoliosis present. CHEST: Clear to auscultation and percussion. CARDIAC: Regular rate and rhythm with normal S1, S2. No murmurs, gallops or rubs. ABDOMEN: Soft and nontender. EXTREMITIES: Without cyanosis, clubbing or edema. Radial pulses are 2+. NEUROLOGIC: She is alert with a nonfocal exam. LABORATORY DATA: EKG, sinus bradycardia with right bundle-branch block. IMPRESSION: 1. Coronary artery disease with progressive angina. 2. Hypertension. 3. Dyslipidemia. 4. Peripheral vascular disease with bilateral SFA interventions. 5. Moderate bilateral carotid stenoses. 6. Diabetes. RECOMMENDATIONS: 1. Perioperative beta blockade. 2. Surgical revascularization. 3. Continued efforts towards aggressive risk factor modification. I will follow along with you. Thank you for asking me to participate in the patient's care. <ELECTRONICALLY SIGNED> By: Tonio Bowles MD, FACC 04/29/20 0740 1713 1929 Tonio Bowles MD, FACC /nt
[2020-04-29 13:15] LABS: MCH 30.1 pg (26.0-34.0); MCHC 33.4 g/dL (28.0-37.0); RBC 2.29 mil/uL (4.20-5.00); WBC 7.6 thou/uL (4.0-11.0)
[2020-04-29 13:18] LABS: HEMATOCRIT 20.6 % (37.0-47.0); HEMOGLOBIN 6.9 gm/dL (12.0-15.0)
[2020-04-29 13:33] LABS: PROTIME 17.4 Seconds (9.3-11.4)
[2020-04-29 13:34] LABS: APTT 32.2 Seconds (24.5-32.8); INR 1.7
[2020-04-29 13:49] LABS: POC BE -1 mmol/L (-2.0 to +3.0); POC CA IONIZED 4.8 mg/dL (4.5-5.3); POC GLUCOSE 109 mg/dL (70-99); POC HCO3 22.9 mmol/L (22.0-26.0); POC HEMOGLOBIN 8.8 g/dL (12.0-15.0); POC POTASSIUM 4.3 mmol/L (3.5-5.1); POC SODIUM 139 mmol/L (136-145); POC pCO2 33.1 mmHg (35.0-45.0); POC pH 7.448 (7.360-7.450)
[2020-04-29 13:50] LABS: POC BE -2 mmol/L (-2.0 to +3.0); POC CA IONIZED 4.5 mg/dL (4.5-5.3); POC GLUCOSE 116 mg/dL (70-99); POC HEMOGLOBIN 6.8 g/dL (12.0-15.0); POC SODIUM 140 mmol/L (136-145); POC pCO2 33.6 mmHg (35.0-45.0); POC pH 7.425 (7.360-7.450)
[2020-04-29 13:50] LABS: POC BE 1 mmol/L (-2.0 to +3.0); POC CA IONIZED 4.1 mg/dL (4.5-5.3); POC GLUCOSE 151 mg/dL (70-99); POC HCO3 25.7 mmol/L (22.0-26.0); POC HEMOGLOBIN 7.5 g/dL (12.0-15.0); POC POTASSIUM 5.8 mmol/L (3.5-5.1); POC SODIUM 140 mmol/L (136-145); POC pCO2 41.7 mmHg (35.0-45.0); POC pH 7.397 (7.360-7.450)
[2020-04-29 13:50] LABS: POC BE -4 mmol/L (-2.0 to +3.0); POC CA IONIZED 4.4 mg/dL (4.5-5.3); POC GLUCOSE 140 mg/dL (70-99); POC HCO3 21.1 mmol/L (22.0-26.0); POC HEMOGLOBIN 8.8 g/dL (12.0-15.0); POC POTASSIUM 4.8 mmol/L (3.5-5.1); POC SODIUM 140 mmol/L (136-145); POC pCO2 35.3 mmHg (35.0-45.0); POC pH 7.385 (7.360-7.450)
[2020-04-29 13:50] LABS: POC BE -2 mmol/L (-2.0 to +3.0); POC CA IONIZED 3.9 mg/dL (4.5-5.3); POC GLUCOSE 123 mg/dL (70-99); POC HCO3 21.9 mmol/L (22.0-26.0); POC HEMOGLOBIN 6.5 g/dL (12.0-15.0); POC POTASSIUM 4.9 mmol/L (3.5-5.1); POC SODIUM 138 mmol/L (136-145); POC pH 7.458 (7.360-7.450)
[2020-04-29 13:50] LABS: POC BE 1 mmol/L (-2.0 to +3.0); POC CA IONIZED 4.1 mg/dL (4.5-5.3); POC GLUCOSE 157 mg/dL (70-99); POC HCO3 26.1 mmol/L (22.0-26.0); POC HEMOGLOBIN 6.8 g/dL (12.0-15.0); POC POTASSIUM 5.9 mmol/L (3.5-5.1); POC SODIUM 138 mmol/L (136-145); POC pCO2 46.6 mmHg (35.0-45.0); POC pH 7.357 (7.360-7.450)
[2020-04-29 13:50] LABS: POC BE -2 mmol/L (-2.0 to +3.0); POC CA IONIZED 4.8 mg/dL (4.5-5.3); POC GLUCOSE 153 mg/dL (70-99); POC HEMOGLOBIN 7.1 g/dL (12.0-15.0); POC POTASSIUM 4.9 mmol/L (3.5-5.1); POC SODIUM 139 mmol/L (136-145); POC pCO2 38.1 mmHg (35.0-45.0); POC pH 7.388 (7.360-7.450)
[2020-04-29 13:50] LABS: POC BE -3 mmol/L (-2.0 to +3.0); POC CA IONIZED 4.1 mg/dL (4.5-5.3); POC GLUCOSE 147 mg/dL (70-99); POC HCO3 21.6 mmol/L (22.0-26.0); POC HEMOGLOBIN 7.5 g/dL (12.0-15.0); POC POTASSIUM 5.4 mmol/L (3.5-5.1); POC SODIUM 137 mmol/L (136-145); POC pCO2 34.5 mmHg (35.0-45.0); POC pH 7.404 (7.360-7.450)
[2020-04-29 13:50] LABS: POC BE -6 mmol/L (-2.0 to +3.0); POC CA IONIZED 4.6 mg/dL (4.5-5.3); POC GLUCOSE 110 mg/dL (70-99); POC HCO3 18.7 mmol/L (22.0-26.0); POC HEMOGLOBIN 6.8 g/dL (12.0-15.0); POC POTASSIUM 4.1 mmol/L (3.5-5.1); POC SODIUM 141 mmol/L (136-145); POC pCO2 30.2 mmHg (35.0-45.0)
--- NOTE | 2020-04-29 14:20 | NUR ---
PT CAME FROM OR ACCOMPANIED BY TONY), NURSING STAFF AND DR. FUENTES FROM THE CABG X4 SURGERY AT 1419. PT ON PROPOFOL AT 20MCG FOR SEDATION. PT WAS CONNECTED TO THE ICU MONITORS. PT ON VENTILATOR WITH SETTING OF TV450, FIO2 60, PEEP 5 AND AC 12. PT SWAN AT 45CM ON ARRIVAL.INTITIAL ABG CALLED GLENN NGUYEN . NO ORDERS RECEIVED. DR. FUENTES NOTIFIED ABOUT THE SWAN LENGTH. DR. FUENTES ADJUSTED THE SWAN TO 48CM AT BEDSIDE.
[2020-04-29 14:33] LABS: HEMATOCRIT 27.7 % (37.0-47.0); MCH 29.3 pg (26.0-34.0); MCHC 32.8 g/dL (28.0-37.0); MCV 89.4 fL (80.0-100.0); RBC 3.1 mil/uL (4.20-5.00); RDW 17.1 % (10.5-14.5); WBC 12.5 thou/uL (4.0-11.0)
[2020-04-29 14:40] LABS: HEMOGLOBIN 9.1 gm/dL (12.0-15.0)
[2020-04-29 14:48] LABS: APTT 32.2 Seconds (24.5-32.8); CALCIUM 7.4 mg/dL (8.5-10.1); CREATININE 1.4 mg/dL (0.6-1.0); INR 1.3; POTASSIUM 4.5 mmol/L (3.5-5.1); PROTIME 13.5 Seconds (9.3-11.4)
[2020-04-29 15:10] LABS: BE(vivo) -5.7 mmol/L (-2 to +3); HCO3 18.7 mmol/L (22.0-26.0); PCO2 32.8 mmHg (35.0-45.0); PO2 125.7 mmHg (80.0-100.0); pH 7.374 (7.360-7.450); sO2 98.5 % (92.0-98.0)
--- NOTE | 2020-04-29 15:44 | EKG ---
[facility] [place] [address] ELECTROCARDIOGRAM REPORT Name: RENE MOON Room #: 251-P ADM IN M.R.#: [id number] Admission: 04/29/20 Attend Phys: Donato Willis MD Discharge: Date of : 45 Report #: [id number] THIS REPORT FOR: cc: Nnamdi Torres MD, Christopher B. MD Couchonnal, Luis F. MD ~ THIS REPORT FOR: //name// [facility] Test Date: 2020-04-29 Test Time: 15:02:37 Pat Name: RENE MOON Department: Room: 251 Gender: F Sport Intern: Jose BERNARDO : 1945 Requested By: Venkata Chávez Order Number: [id number] MD: Mason Currie Measurements Intervals [place] Rate: 61 P: -73 [place]: 185 QRS: 0 QRSD: 124 T: 69 QT: 475 QTc: 479 Interpretive Statements Sinus or ectopic atrial rhythm Nonspecific intraventricular conduction delay ST changes consistent with pericarditis Compared to ECG 04/24/2020 13:35:06 Electronically Signed On 04-29-2020 15:43:53 CDT by Mason Currie [email or web address] <ELECTRONICALLY SIGNED> By: Mason Currie MD 04/29/20 1543 1502 1502 Mason Currie MD /EPI
--- NOTE | 2020-04-29 18:35 | NUR ---
CPAP TRIAL AT 1831 AND ENDED 1834. PT WENT APNEIC FOR 15 SECONDS. CONTINUE TO MONITOR AT THIS MOMENT.
--- NOTE | 2020-04-29 18:36 | NUR ---
PT SON VALENTIN MOON UPDATED ON PT SITUATION AT 1836. PT SON WAS AT BEDSIDE AROUND 1600. PT SON WAS NOTIFIED ABOUT ICU VISITING POLICY AND HOURS.
--- NOTE | 2020-04-29 20:19 | NUR ---
193-ASSUMED CARE OF PT.SECOND CPAP TRIAL DONE. PT W INC'D RR, LOW VOLUMES. INDICATING SHE IS IN PAIN,HOLDING UP 10 FINGERS WHEN ?'D. EXPLAINED THAT SHE NEEDED TO COME OFF THE VENT AND THAT PAIN MED WOULD DELAY HER COMING OFF.PT IS BREATHING VERY SHALLOWLY & BARELY OVER RIDING VENT WHEN AWAKE.--VW 2009- IN TO SEE.--VW
[2020-04-29 23:33] LABS: BE(vivo) -7.9 mmol/L (-2 to +3); HCO3 17.8 mmol/L (22.0-26.0); PCO2 37.1 mmHg (35.0-45.0); PO2 92.2 mmHg (80.0-100.0); sO2 96.4 % (92.0-98.0)
[2020-04-30 03:32] VITALS: BP 101/45
[2020-04-30 05:30] VITALS: BP 105/38
[2020-04-30 05:48] LABS: INR 1.1; PROTIME 11.2 Seconds (9.3-11.4)
[2020-04-30 06:12] LABS: HEMATOCRIT 24.7 % (37.0-47.0); HEMOGLOBIN 8.4 gm/dL (12.0-15.0); MCH 30.7 pg (26.0-34.0); MCHC 33.9 g/dL (28.0-37.0); MCV 90.6 fL (80.0-100.0); RBC 2.73 mil/uL (4.20-5.00); RDW 17.1 % (10.5-14.5); WBC 9.1 thou/uL (4.0-11.0)
[2020-04-30 06:15] LABS: CALCIUM 7.4 mg/dL (8.5-10.1); MAGNESIUM 2.4 mg/dL (1.8-2.4); POTASSIUM 4.4 mmol/L (3.5-5.1)
[2020-04-30 07:32] VITALS: BP 105/47
--- NOTE | 2020-04-30 07:57 | EKG ---
[facility] [place] [address] ELECTROCARDIOGRAM REPORT Name: RENE MOON Room #: 251-P ADM IN M.R.#: [id number] Admission: 04/29/20 Attend Phys: Donato Willis MD Discharge: Date of : 45 Report #: [id number] THIS REPORT FOR: cc: Nnamdi Torres MD, Christopher B. MD Lundgren,oTnio Steele MD [facility] ~ THIS REPORT FOR: //name// [facility] Test Date: 2020-04-30 Test Time: 07:38:34 Pat Name: RENE MOON Department: Room: 251 P Gender: F Bankruptcy Assistant: CLAUDIO : 1945 Requested By: Venkata Chávez Order Number: [id number] MD: Tonio Bowles Measurements Intervals [place] Rate: 65 P: 55 IN: 189 QRS: 3 QRSD: 132 T: 33 QT: 459 QTc: 478 Interpretive Statements Sinus rhythm Nonspecific intraventricular conduction delay ST segment elevation, consider pericarditis Compared to ECG 04/29/2020 15:02:37 ST segment elevation is more pronounced Electronically Signed On 04-30-2020 7:57:29 CDT by Tonio Bowles [email or web address] <ELECTRONICALLY SIGNED> By: Tonio Bowles MD, FAC 04/30/20 0757 0738 Tonio Bowles MD, [facility] /EPI
[2020-04-30 08:10] LABS: URINE CREATININE-RANDOM* 85.6 mg/dL; URINE SODIUM-RANDOM* <5 mmol/L
--- NOTE | 2020-04-30 09:49 | NUR ---
chart review, pod cabg x4. unable to visit with pt at this time. will cont following as needed for dc needs.
--- NOTE | 2020-04-30 11:26 | NUR ---
Received consult for diet education. Pt s/p CABG 04/29. Will await until more stable and transfer out of ICU, then address nutrition education needs
--- NOTE | 2020-04-30 18:16 | NUR ---
MEDIASTINAL CHEST TUBES DC'D. PLEURAL TUBE PLACED TO SINGLE ATRIUM. WOUND VAC DRESSING REINFORCED. PACER WIRES CAPPED. PT REFUSING TO EAT DINNER AT THE MOMENT.
[2020-05-01 00:06] LABS: HBsAG-EMPLOYEE EXPOSURE Negative (Negative); HCV AB-EMPLOYEE EXPOSURE <0.1 (0.0-0.9)
--- NOTE | 2020-05-01 05:49 | NUR ---
Pt has been treated through the night for upper/lower back/shoulder discomfort, she was reporting a 10/10 but pt has chronic pain, (uses tylenol at home), she has received oxycodone with good effect. She rated her pain at 4/10 before her dose at 0519, and presented as much more comfortable. Vital signs have been stable, her art line readings have improved since her pain is controlled better. Monitor reads SB/SR 50's to 70's, trace pedal edema, + pulses. LCTA on 3 L/m sats 95% and above. Poor appetite, <10 of dinner eaten last night, taking PO fluids well and no C/O nausea voiced. Good urine output
[2020-05-01 06:08] LABS: HEMATOCRIT 25.7 % (37.0-47.0); HEMOGLOBIN 8.4 gm/dL (12.0-15.0); MCH 30.2 pg (26.0-34.0); MCHC 32.8 g/dL (28.0-37.0); RBC 2.8 mil/uL (4.20-5.00); RDW 17.7 % (10.5-14.5); WBC 10.7 thou/uL (4.0-11.0)
[2020-05-01 06:51] LABS: CALCIUM 7.4 mg/dL (8.5-10.1); POTASSIUM 4.7 mmol/L (3.5-5.1)
[2020-05-01 07:26] VITALS: BP 127/54
[2020-05-01 07:32] VITALS: BP 142/61
[2020-05-01 07:58] LABS: POC BE -12 mmol/L (-2.0 to +3.0); POC CA IONIZED 1.9 mg/dL (4.5-5.3); POC GLUCOSE 68 mg/dL (70-99); POC HCO3 14.1 mmol/L (22.0-26.0); POC HEMATOCRIT < 15.0 % (37.0-47.0); POC HEMOGLOBIN Outside Report Range g/dL (12.0-15.0); POC POTASSIUM 2.2 mmol/L (3.5-5.1); POC SODIUM 155 mmol/L (136-145); POC pCO2 26.9 mmHg (35.0-45.0); POC pH 7.326 (7.360-7.450)
[2020-05-01 09:37] LABS: ALBUMIN 3.2 g/dL (3.4-5.0); DIRECT BILIRUBIN < 0.1 mg/dL (<0.1-0.2); SGOT 46 U/L (15-37); SGPT 16 U/L (30-65); TOTAL BILIRUBIN 0.3 mg/dL (0.2-1.0); TOTAL PROTEIN 5.6 g/dL (6.4-8.2)
[2020-05-01 10:47] VITALS: BP 137/63
--- NOTE | 2020-05-01 10:50 | NUR ---
ASSUMED CARE @ 0700 05/01/20, PT ASSESSMENTS AND VSS COMPLETE PER ICU PROTOCOL. PT AXOX4, PT SR-SB ON THE MONITOR, FLAVIA CARDIOLOGY AIRCONDITIONING DRAFTING OFFICER CALLED TO CLARIFY ORDERS ON AMIODARONE ORDER, PT'S HR 57-62 ON THE MONITOR, PT ALREADY ON CARVIDELOL SCHEDULED, RN CONCERNED THAT 400MG DOSE OF AMIO MIGHT BE TOO MUCH, WHEN THESE CONCERNS ARE EXPRESSED, RN TOLD TO HOLD AMIO THIS AM. DR FUENTES @ BEDSIDE THIS MORNING, ORDERS RECIEVED TO DC FENTANYL ORDER. WENDY ELIZABETH @ BEDSIDE THIS AM, PLEURAL CHEST TUBE TAKEN OUT @ 0815 PER WENDY. RN TOLD TO KEEP LEAL CATHETER IN TO MONITOR ACCURATE UO. CCU ORDERS RECIEVED, REPORT GIVEN TO ARLIN SANTO, PT TRANSPORTED @ 1049, NO COMPLICATIONS NOTED.
--- NOTE | 2020-05-01 11:47 | NUR ---
PT. ARRIVED AT FLOOR AROUND 1100; PT. AOX4; ST. HAVING TENDER PAIN OVER CHEST; REFUSED PRN PAIN MEDICATION; SB ON THE MONITOR; DROWSY; 02 TITRATE TO 1L; 02 SAT 93%; MONITORING; RLE DRESSING CHANGED; VS WNL; MONITORING; ASSESSMENT CHARGED; FOLLOWING POC; MONITORING;
--- NOTE | 2020-05-01 12:54 | O ---
[facility] [address] [place] [address] OPERATIVE REPORT Name: RENE MOON Room #: 212-P ADM IN M.R.#: [id number] Admission: 04/29/20 Attend Phys: Donato Willis MD Discharge: Date of : 45 Report #: [id number] THIS REPORT FOR: cc: Nnamdi Torres MD,Nnamdi Willis,Donato Leal MD ~ CC: Nnamdi Willis DATE OF SERVICE: 04/29/2020 PREOPERATIVE DIAGNOSIS: Coronary artery disease. POSTOPERATIVE DIAGNOSIS: Coronary artery disease. OPERATION: Coronary artery bypass x 4 including left internal mammary artery to left anterior descending artery and saphenous vein in a Y fashion with 1 branch to marginal artery and 1 branch to the right coronary artery and to the posterolateral branch, which was a distal branch of the circumflex and endoscopic harvest, right greater saphenous vein. SURGEON: Donato Willis MD MICROWAVE OVEN ASSEMBLER: GLENN Barr. ANESTHESIA: General. INDICATIONS: The patient is a 74-year-old with coronary artery disease. The patient is seen for Dr. Bowles. The patient had positive iFR in the LAD and then a codominant system with a high-grade lesion in the small right coronary artery and lesions in the large first marginal and in the distal circumflex. Left ventricular function is satisfactory. FINDINGS AND TECHNIQUE: After general anesthesia was established, saphenous vein was harvested using an endoscopic approach. Exposure was obtained through median sternotomy. Left internal mammary artery was harvested. A pericardial well was made. Cannulation sutures were placed. Heparin was given. Aorta was cannulated. Right atrium was cannulated. Cardioplegia needle was positioned in the aortic root. Retrograde cardioplegia catheter was placed in coronary sinus. Cardiopulmonary bypass was established. The aorta was cross clamped. Antegrade and retrograde cardioplegia were given. Ice was poured in the pericardial well. The heart was stopped. During electromechanical arrest, the distal anastomoses were performed and end-to-side anastomosis was made between vein and the posterolateral branch, [facility] [address] [address] OPERATIVE REPORT Name: RENE MOON Room #: 212-P ADM IN M.R.#: [id number] Admission: 04/29/20 Attend Phys: Donato Willis MD Discharge: Date of : 45 Report #: [id number] which was a distal circumflex branch. This was a small vessel measuring approximately 1.3 mm. The same segment of vein was sewn in end-to-side fashion to the right coronary just above the crux. This was a 1.3 mm vessel also. Cold cardioplegia was given. A separate segment of vein was sewn in end-to-side fashion to the large first marginal. This was a 1.7 mm vessel. Cold cardioplegia was given. Left internal mammary artery was sewn in end-to-side fashion to left anterior descending artery. This was a very tiny vessel and measured 0.7 mm distally and a bit more proximally. The anastomosis was checked with the Doppler and the temperature technique. Cold cardioplegia was given. One proximal anastomosis was performed because of a large atheroma in the ascending aorta. When this was complete, warm retrograde cardioplegia was given followed by warm continuous blood to the coronary sinus. When this infusion was complete, the crossclamp was removed. De-airing maneuvers were performed. The proximal end of the vein to the right and posterolateral was sewn to the side of the vein to the marginal. When this was complete, flow was established and all the anastomoses were inspected and found to be satisfactory. As the patient warmed, nice cardiac activity resumed. Chest tubes and pacing wires were placed. A marker was placed around the proximal anastomosis. When the patient was warmed, she was weaned from cardiopulmonary bypass. Venous cannula was removed. Protamine was given, the aortic cannula was removed. Flows were measured in the bypass grafts. When hemostasis was satisfactory, chest was irrigated with antibiotic solution and closed in the usual fashion. The patient was taken to the Intensive Care Unit in good condition having tolerated the procedure well. All counts reported as correct. <ELECTRONICALLY SIGNED> By: Donato Willis MD 05/01/20 1254 14 28 Donato Willis MD /nt
[2020-05-01 16:39] VITALS: BP 148/49
[2020-05-01 19:40] VITALS: BP 143/55
[2020-05-02] VITALS (9 sets, daily range): BP systolic 94–161; BP diastolic 47–68
[2020-05-02 04:29] LABS: CALCIUM 7.7 mg/dL (8.5-10.1); CREATININE 1.9 mg/dL (0.6-1.0); MAGNESIUM 2.7 mg/dL (1.8-2.4); PHOSPHORUS 3.4 mg/dL (2.5-4.9); POTASSIUM 4.8 mmol/L (3.5-5.1)
[2020-05-02 04:31] LABS: ABSOLUTE NEUTROPHILS 7.4 thou/uL (1.4-8.2); BASOPHILS 0.3 % (0.0-2.0); EOSINOPHILS 1.3 % (0.0-3.0); HEMATOCRIT 24.6 % (37.0-47.0); HEMOGLOBIN 8.1 gm/dL (12.0-15.0); LYMPHOCYTES 14.6 % (24.0-44.0); MCH 30.1 pg (26.0-34.0); MCHC 32.9 g/dL (28.0-37.0); MCV 91.5 fL (80.0-100.0); MONOCYTES 7.4 % (1.0-8.0); PLATELET COUNT 80 thou/uL (150-400); POLYS 76.4 % (36.0-66.0); RBC 2.69 mil/uL (4.20-5.00); WBC 9.7 thou/uL (4.0-11.0)
--- NOTE | 2020-05-02 07:45 | NUR ---
ASSUME CARE 1900. PT/VITALS STABLE. INTERMITTENT INCISIONAL PAIN. PAIN RELIEF WITH PAIN MEDS. MODERATE TOLERANCE TO ACTIVITY. NO DISTRESS NOTED. PROGRESSING MODERATELY WITH POC. PLAN IS TO CONTINUE TO MONITOR WOUND HEALING AND INFECTION, AND IMPROVE OVERALL HEALTH. WILL CONTINUE TO MONITRO AND FOLLOW WITH POC.
--- NOTE | 2020-05-02 15:08 | NUR ---
RECEIVED PT'S CARE AROUND 729; PT. ON BED; ALERT; DURING AM ASSESSMENT AOX4; NO C/O PAIN; AM MEDICATION GIVEN; EDUCATED ABOUT PAIN MANAGEMENT; ST. UNDERSTANDING; PER DR. FUENTES HOLD LIDOCAINE PATCH; HOLD IT; REQUESTED PRN PAIN MEDICATION AFTER WORKING WITH CARDIOLOGY REHAB NURSE; PRN PAIN MEDICATION GIVEN; ABLE TO AMBULATE WITH PT. AROUND THE UNIT; TOLERATED IT WELL; INSULIN REPLACED; PER CARDIAC REHAB NURSE PT. C/O DIZZINESS WHILE AMBULATING; BP RE-ASSESSED DROPPED FROM 111/53 TO 98/41; AFTER A FEW MINUTES BP RE-ASSESSED 113/50 (85) SITTING; BP UP 99/51 (69); REIMBURSEMENT ANALYST PAGED; WENDY NOTIFIED;
[2020-05-03] VITALS (7 sets, daily range): BP systolic 123–170; BP diastolic 39–68
--- NOTE | 2020-05-03 06:34 | NUR ---
SLEPT MOST OF SHIFT. DENIES NEED FOR PAIN MEDICATION THIS SHIFT. STRAIGHT CATH PER ORDERS X2 THIS SHIFT PAST LEAL DISCONTINUED. WORKING ON GOALS AND PLAN OF CARE FOR NOC. REMAINS ON 02 AT 1L/NC. ASSIT UP X3 TO COMODE AND FOR DAILY WT. PROGRESSING SLOWLY. CONTINUE TO ASSES CLOSELY.
[2020-05-03 06:55] LABS: HEMATOCRIT 25.1 % (37.0-47.0); HEMOGLOBIN 8.2 gm/dL (12.0-15.0); MCH 30.3 pg (26.0-34.0); MCHC 32.6 g/dL (28.0-37.0); MCV 92.9 fL (80.0-100.0); RBC 2.7 mil/uL (4.20-5.00); RDW 17.2 % (10.5-14.5); WBC 7.6 thou/uL (4.0-11.0)
[2020-05-03 07:10] LABS: ALBUMIN 2.8 g/dL (3.4-5.0); CALCIUM 7.8 mg/dL (8.5-10.1); CREATININE 1.5 mg/dL (0.6-1.0); POTASSIUM 4.9 mmol/L (3.5-5.1)
--- NOTE | 2020-05-03 11:39 | EKG ---
[facility] [address] [place] [address] ELECTROCARDIOGRAM REPORT Name: RENE MOON Room #: 212- ADM IN M.R.#: [id number] Admission: 04/29/20 Attend Phys: Donato Willis MD Discharge: Date of : 45 Report #: [id number] THIS REPORT FOR: cc: Nnamdi Torres MD, Christopher B. MD Couchonnal, Luis F. MD ~ THIS REPORT FOR: //name// [facility] Test Date: 2020-05-03 Test Time: 07:40:58 Pat Name: RENE MOON Department: Room: 212 P Gender: F Desk Editor: Jose BERNARDO : 1945 Requested By: Venkata Chávez Order Number: [id number] MD: Mason Currie Measurements Intervals [place] Rate: 57 P: 55 MS: 146 QRS: 13 QRSD: 117 T: 13 QT: 464 QTc: 452 Interpretive Statements Sinus rhythm Incomplete right bundle branch block Inferior infarct, old Compared to ECG 04/30/2020 07:38:34 Incomplete right bundle-branch block now present Myocardial infarct finding now present Intraventricular conduction delay no longer present ST (T wave) deviation no longer present Electronically Signed On 05-03-2020 11:39:19 CDT by Mason Currie [email or web address] <ELECTRONICALLY SIGNED> By: Mason Currie MD 05/03/20 1139 9 9 Mason Currie MD /EPI
--- NOTE | 2020-05-03 17:28 | NUR ---
ASSESSMENT CHARTED. PT ALERT AND ORIENTED. HAD LOW HR THIS SHIFT. DR MENEZES AWARE. NEW ORDERS NOTED. PT AMBULATED X3 THIS SHIFT. UP IN THE CHAIR MID MORNING. WOUND VAC INTACT. RT TREATMENT PROVIDED ORDERED. NO CARDIAC OR RESPIRATORY DISTRESS NOTED. PROGRESSING WELL TOWARDS DISCHARGE GOAL. WILL CONTINUE TO MONITOR.
[2020-05-04 01:01] VITALS: BP 140/58
[2020-05-04 05:00] VITALS: BP 142/49
--- NOTE | 2020-05-04 06:15 | NUR ---
ASSUMED CARE AT 1900; PATIENT HAD 2 BM DURING SHIFT AND BOTH TIMES WAS UNAWARE THAT SHE SOILED HERSELF; STRAIGHT CATH X1 DURING SHIFT. SINUS GHANSHYAM (HEART) RATE DROPPED TO 39 DURING THE NOC AND WHILE PATIENT SLEPT. FOR 0400 VS HEART RATE WAS 51. WOUND VAC REMAINS IN PLACE ON STERNUM AND WITH GOOD SEAL. PATIENT DOES NOT C/O OF ANY PAIN. PATIENT CONTINUES TO IMPROVE AND PROGRESSING WELL TOWARD DISCHARGE GOALS.
[2020-05-04 07:50] VITALS: BP 146/56
[2020-05-04 11:35] VITALS: BP 171/56
[2020-05-04 15:45] VITALS: BP 179/63
--- NOTE | 2020-05-04 16:15 | NUR ---
ASSESSMENT CHARTED. PT ALERT AND ORIENTED. SB ON TELE THIS SHIFT. DR. MENEZES AND DR. WHYTE AWARE. NEW ORDERS NOTED. AMBULATED X2 THIS SHIFT. UP IN THE CHAIR MOST OF THE SHIFT. STERNUM PRECAUTION ENFORCED. SURGICAL INCISION C/D/I, WOUND VAC INTACT. FALL PRECAUTION IN PLACE. PLAN TO BE DISCHARGE IN AM. NO CONCERNS AT THIS TIME. WILL CONTINUE TO MONITOR.
[2020-05-04 19:29] VITALS: BP 168/68
[2020-05-05 00:38] VITALS: BP 174/65
[2020-05-05 04:18] VITALS: BP 141/46
--- NOTE | 2020-05-05 06:39 | NUR ---
SLEPT MOST OF SHIFT. AT 0220 PATIENT AWOKE AND COMPLAINING OF WOUND VAC TO STERNAM INCISION JUST BEING UNCOMFORTABLE. REPOSITIONED AND TYLENOL GIVEN. AT 0400 PATIENT STATES PAIN IS GONE. PATIENT VOIDED 3 TIMES TONIGHT AND STATES DOES NOT NEED TO BE STRAIGHT CATHED THIS SHIFT. WORKING ON GOALS AND PLAN OF CARE FOR NOC. PROGRESSING TOWARDS DISCHARGE GOALS. CONTINUE TO ASSES CLOSELY.
[2020-05-05 08:00] VITALS: BP 171/49
[2020-05-05] MEDS ORDERED: COREG6.25 MG PO (08:52)
[2020-05-05] MEDS ORDERED: PACERONE 200 M200 M1 PO (08:52)
[2020-05-05] MEDS ORDERED: COZAAR 50 MG TA50 M1 PO (08:52)
[2020-05-05 12:08] VITALS: BP 141/46
--- NOTE | 2020-05-05 12:44 | NUR ---
ASSESSMENT CHARTED. PT ALERT AND ORIENTED. VSS. EVALUATED BY PT AND OT. SURGICAL INCISION CHANGED BY WENDY ELIZABETH. SEEN BY DR. MENEZES AND DR. FUENTES. ORDERS GIVEN TO DISCHARGE PT TO HOME WITH HH. DISCHARGE INSTRUCTIONS GIVEN TO PT. PT VERBERLISED UNDERSTANDING. PT LEFT THE FACILITY ACCOMPANIED BY THE SON.
--- NOTE | 2020-05-05 13:12 | NUR ---
therapy worked with patient and reports safe for home. Patient wants to dc home. Son at bedside and reports family will be with patient all the time. Patient to dc home with HH care and has no preference for HH agency. Referral to [facility]. Verified address. PCP Dr Fredy Torres. Patient asking regarding gait belt. Discussed purchase item and where can purchase. Patient to dc home today no further needs.
--- NOTE | 2020-05-05 14:12 | NUR ---
FAXED REFERRAL TO [facility] HH SPOKE WITH GALO IN INTAKE THEY CAN ACCEPT. FAXED DC ORDERS/SUMMARY RECEIVED CONFIRMATION AND THEY WILL NOTIFY PT AND SET UP VISITS.
== END 2020-05-05 12:53 | disposition home health service (06) | DRG 236 ==
LOC: PRE 09:50 → TBA 04-29 06:13 → ICU 04-29 06:13 → PRE 04-29 12:15 → ICU 04-29 14:31 → PRE 04-29 14:52 → 2N 05-01 10:26
PROVIDERS: Physician Assistant; ADMIT Surgery Vascular Surgery; ATTEND Surgery Vascular Surgery
DX: I25.118 Atherosclerotic heart disease of native coronary artery with other forms of angina pectoris (principal); N17.9 Acute kidney failure, unspecified; E44.0 Moderate protein-calorie malnutrition; D62 Acute posthemorrhagic anemia; E78.5 Hyperlipidemia, unspecified; M10.9 Gout, unspecified; K21.9 Gastro-esophageal reflux disease without esophagitis; E11.51 Type 2 diabetes mellitus with diabetic peripheral angiopathy without gangrene; N31.9 Neuromuscular dysfunction of bladder, unspecified; I65.29 Occlusion and stenosis of unspecified carotid artery; N18.9 Chronic kidney disease, unspecified; K57.90 Diverticulosis of intestine, part unspecified, without perforation or abscess without bleeding; M19.90 Unspecified osteoarthritis, unspecified site; E53.8 Deficiency of other specified B group vitamins; M79.7 Fibromyalgia; E11.22 Type 2 diabetes mellitus with diabetic chronic kidney disease; I12.9 Hypertensive chronic kidney disease with stage 1 through stage 4 chronic kidney disease, or unspecified chronic kidney disease; M48.00 Spinal stenosis, site unspecified; D69.59 Other secondary thrombocytopenia; Z79.82 Long term (current) use of aspirin; Z88.8 Allergy status to other drugs, medicaments and biological substances; Z90.710 Acquired absence of both cervix and uterus; Z68.35 Body mass index [BMI] 35.0-35.9, adult; Z95.820 Peripheral vascular angioplasty status with implants and grafts; Z90.49 Acquired absence of other specified parts of digestive tract; Z80.0 Family history of malignant neoplasm of digestive organs; Z79.899 Other long term (current) drug therapy
CPT/HCPCS: 10078; 10081; 47000; 47001; 47002; 47297; 48888; 50010; 50011; 50249; 50409; 50456; 50498; 50643; 50668; 50953; 51165; 51301; 52131; 52259; 52287; 52314; 53327; 53358; 54118; 55415; 56455; 56524; 56525; 56526; 56527; 56528; 56531; 56534; 56668; 56719; 56760; 56898; 57093; 57167; 62110; 62950; 65003; 65020; 65047; 65090; 65130; 65135; 83006

== ENCOUNTER 2020-04-17 11:47 | Inpatient (IN) | payer OTHER, BC ==
[~2020-04-17] VITALS: Ht 154.9 cm; Wt 84.4 kg
[2020-04-17 13:03] LABS: ABSOLUTE NEUTROPHILS 3.2 thou/uL (1.4-8.2); BASOPHILS 0.5 % (0.0-2.0); EOSINOPHILS 3.4 % (0.0-3.0); HEMATOCRIT 31.5 % (37.0-47.0); HEMOGLOBIN 10.3 gm/dL (12.0-15.0); LYMPHOCYTES 30.6 % (24.0-44.0); MCH 29.8 pg (26.0-34.0); MCHC 32.6 g/dL (28.0-37.0); MCV 91.4 fL (80.0-100.0); MONOCYTES 6.3 % (1.0-8.0); PLATELET COUNT 136 thou/uL (150-400); POLYS 59.2 % (36.0-66.0); RBC 3.45 mil/uL (4.20-5.00); RDW 17.7 % (10.5-14.5); WBC 5.4 thou/uL (4.0-11.0)
[2020-04-17 13:20] LABS: ALBUMIN 3.2 g/dL (3.4-5.0); ANION GAP 9 mmol/L (7-16); BUN 61 mg/dL (7-18); CALCIUM 8.2 mg/dL (8.5-10.1); CHLORIDE 107 mmol/L (98-107); CO2 21 mmol/L (21-32); CREATININE 2.4 mg/dL (0.6-1.0); GLUCOSE 98 mg/dL (74-106); MAGNESIUM 2.2 mg/dL (1.8-2.4); SGOT 20 U/L (15-37); SGPT 22 U/L (30-65); SODIUM 137 mmol/L (136-145); TOTAL BILIRUBIN 0.2 mg/dL (0.2-1.0); TOTAL PROTEIN 6.3 g/dL (6.4-8.2); TROPONIN-I <0.06 ng/mL (<0.06)
[2020-04-17 13:25] LABS: POTASSIUM 6.7 mmol/L (3.5-5.1)
[2020-04-17 14:32] VITALS: BP 157/52
[2020-04-17 15:30] VITALS: BP 155/92
[2020-04-17 15:45] VITALS: BP 152/52
[2020-04-17 16:01] VITALS: BP 152/52
[2020-04-17 16:22] LABS: % SATURATION 29 % (20-39); IRON 79 ug/dL (50-170); TIBC 270 ug/dL (250-450)
[2020-04-17 16:50] LABS: FERRITIN 76 ng/mL (8-252)
[2020-04-17 17:32] LABS: ANION GAP 9 mmol/L (7-16); BUN 57 mg/dL (7-18); CALCIUM 8.2 mg/dL (8.5-10.1); CHLORIDE 106 mmol/L (98-107); CO2 19 mmol/L (21-32); CREATININE 2.3 mg/dL (0.6-1.0); GLUCOSE 97 mg/dL (74-106); SODIUM 134 mmol/L (136-145); TROPONIN-I <0.06 ng/mL (<0.06)
[2020-04-17 17:41] LABS: POTASSIUM 7.4 mmol/L (3.5-5.1)
--- NOTE | 2020-04-17 18:39 | NUR ---
PT CARE ASSUMED AT 1545. ED TRANSFER. ASSESSMENT CHARTED. MEDICATION CHARTED. CRITICAL PIETER K+ 7.4; DR MENEZES NOTIFIED. PT STATES THAT SHE STRAIGHT CATHS HERSELF MORNING AND HS; RETENTION.
[2020-04-17 19:48] VITALS: BP 128/50
[2020-04-18 00:10] VITALS: BP 154/43
[2020-04-18 03:13] VITALS: BP 159/61
--- NOTE | 2020-04-18 05:50 | NUR ---
PATIENT AMBULATES INDEPENDENT OF ASSISTANCE AND USES BEDSIDE COMMODE. CONTINUE TO MONITOR LABS - SEVERAL FLAGGED TOO HIGH AND TOO LOW. PATIENT STRAIGHT CATHS HERSELF DAILY AT HOME IN THE MORNING AND EVENING D/T CHRONIC URINARY RETENTION. PATIENT IS RECEIVING CONTINUOUS NS AT 80 MLS/HR. PATIENT'S SYSTOLIC B/P HAVE BEEN IN THE 150s.
[2020-04-18 06:47] LABS: URINE BILIRUBIN NEGATIVE (Negative); URINE BLOOD NEGATIVE (Negative); URINE CLARITY CLEAR; URINE COLOR YELLOW; URINE GLUCOSE-RANDOM* NEGATIVE (Negative); URINE KETONES NEGATIVE (Negative); URINE LEUKOCYTES-REFLEX NEGATIVE (Negative); URINE NITRITE-REFLEX NEGATIVE (Negative); URINE PROTEIN (DIPSTICK) TRACE (Negative); URINE UROBILINOGEN 0.2 E.U./dl (0.2-1.0)
[2020-04-18 07:36] VITALS: BP 151/47
[2020-04-18 07:54] LABS: CREATININE 2.2 mg/dL (0.6-1.0)
[2020-04-18 07:58] LABS: POTASSIUM 4.7 mmol/L (3.5-5.1)
--- NOTE | 2020-04-18 09:13 | EKG ---
[facility] [place] [address] ELECTROCARDIOGRAM REPORT Name: RENE MOON Room #: 211-P ADM IN M.R.#: [id number] Admission: 04/17/20 Attend Phys: Ash Markham MD Discharge: Date of : 45 Report #: [id number] THIS REPORT FOR: cc: Nnamdi Torres MD, Christopher B. MD Lundgren,Tonio Steele MD [facility] ~ THIS REPORT FOR: //name// [facility] ED Test Date: 2020-04-17 Test Time: 11:51:12 Pat Name: RENE MOON Department: Room: 211 Gender: F Research Psychologist: YOBANI : 1945 Requested By: Tim Hamilton Order Number: [id number] MD: Tonio Bowles Measurements Intervals [place] Rate: 49 P: 61 [place]: 216 QRS: -10 QRSD: 133 T: 15 QT: 487 QTc: 440 Interpretive Statements Sinus bradycardia Right bundle branch block Compared to ECG 11/23/2019 00:08:56 No significant change was found Electronically Signed On 04-18-2020 9:13:00 CDT by Tonio Bowles [email or web address] <ELECTRONICALLY SIGNED> By: Tonio Bowles MD, [facility] 04/18/20 0913 1151 1151 Tonio Bowles MD, [facility] /EPI
--- NOTE | 2020-04-18 09:25 | EKG ---
[facility] [place] [address] ELECTROCARDIOGRAM REPORT Name: RENE MOON Room #: 211-P ADM IN M.R.#: [id number] Admission: 04/17/20 Attend Phys: sAh Markham MD Discharge: Date of : 45 Report #: [id number] THIS REPORT FOR: cc: Nnamdi Torres MD, Christopher B. MD Lundgren,Tonio Steele MD [facility] ~ THIS REPORT FOR: //name// [facility] Test Date: 2020-04-18 Test Time: 07:36:16 Pat Name: RENE MOON Department: Room: 211 P Gender: F Nursing Secretary: CLAUDIO : 1945 Requested By: Tonio Bowles Order Number: [id number] MD: Tonio Bowles Measurements Intervals [place] Rate: 59 P: 39 [place]: 202 QRS: -15 QRSD: 134 T: 30 QT: 461 QTc: 457 Interpretive Statements Sinus bradycardia Incomplete right bundle branch block Compared to ECG 04/17/2020 11:51:12 No significant change was found Electronically Signed On 04-18-2020 9:25:37 CDT by Tonio Bowles [email or web address] <ELECTRONICALLY SIGNED> By: Tonio Bowles MD, [facility] 04/18/2025 5 Tonio Bowles MD, [facility] /EPI
[2020-04-18 11:16] VITALS: BP 168/52
--- NOTE | 2020-04-18 14:45 | NUR ---
Chart reviewed and case discussed with the care team. [facility] attempted to reach the pt via phone without success. Nursing reports the pt is a&ox4 and up ad berny, steady on her feet. She self caths twice daily and has had to cancel heart surgery (org scheduled 04/10) due to UTI. Pt admitted with UTI and hyperkalemia. CABG on hold and will be rescheduled as an outpt most likely. The pt lives at home with her spouse and has supportive sons Ronald/Carlos. She is indep without an assistive device. She has health ins in place and pcp for f/u care. No cm interventions indicated at this time. Will remain available should needs arise.
[2020-04-18 16:06] VITALS: BP 181/69
[2020-04-18 20:00] VITALS: BP 180/54
--- NOTE | 2020-04-18 20:33 | NUR ---
RECEIVED PT'S CARE AROUND 0736; PT. ALERT; ON BED; DURING AM ASSESSMENT AOX4; AM MEDICATIONS GIVEN; EDUCATED ABOUT FALL PREVENTIONS; ST. UNDERSTANDING; NO C/O PAIN; SR ON THE MONITOR; POTASSIUM WNL; PT. SELF CATH AT HOME; PHYSICIAN NOTIFIED; PER PHYSICIAN PT. MIGHT SELF CATH PRN; PASSED ON REPORT; DURING THE EVENING SBP ON THE 180s; SCHEDULED MEDICATION GIVEN; MONITORING; SELF CATH DURING THE NIGHT; 300 ML OUT; ASSESSMENT CHARGED; FOLLOWING POC; PASSED ON REPORT;
[2020-04-19 00:30] VITALS: BP 179/68
[2020-04-19 03:45] VITALS: BP 170/67
--- NOTE | 2020-04-19 05:42 | NUR ---
PT ALERT AND ORIENTED. DENIES CHEST PAIN, NAUSEA OR VOMITING. PT HAD ELEVATED BP THROUGH THE NIGHT. MANUFACTURING SUPERVISOR NOTIFIED. EXTRA DOSE OF CARVEDILOL AND HYDRALAZINE GIVEN BUT BP STILL > 170 SBP. NO FURTHER INTERVENTION GIVEN AFTER A DOSE OF HYDRALAZINE. STRAIGHT CATHS SELL INDEPENDENTLY. NO FURTHER CONCERNS. PT ANTICIPATE TO DC TODAY.
[2020-04-19 07:15] VITALS: BP 166/67
[2020-04-19 07:24] LABS: CALCIUM 8.4 mg/dL (8.5-10.1); CREATININE 1.5 mg/dL (0.6-1.0); PHOSPHORUS 2.8 mg/dL (2.5-4.9); POTASSIUM 5.1 mmol/L (3.5-5.1)
[2020-04-19] MEDS ORDERED: IMDUR 60 MG TAB60 M1 PO (09:30)
[2020-04-19] MEDS ORDERED: CARVEDILOL12.5 MG PO (09:30)
[2020-04-19] MEDS ORDERED: NITROSTAT0.4 M1 SUBLING (09:33)
[2020-04-19 11:30] VITALS: BP 156/52
[2020-04-19 15:20] VITALS: BP 160/56
--- NOTE | 2020-04-19 17:03 | NUR ---
ASSUMED CARE AT SHIFT CHANGE, BP 156-166/52-67, AND PATIENT IS BACK ON LOSARTAN. ASSESSMENT CHARTED AND OTHER VSS. SELF ST CATHED, AND PATIENT TOLERATES IT WELL. PROGRESSING SLOWLY AND WILL CONTINUE WITH POC.
[2020-04-19 20:30] VITALS: BP 161/46
[2020-04-20] VITALS: BP 174/59
[2020-04-20 04:20] VITALS: BP 187/58
--- NOTE | 2020-04-20 05:33 | NUR ---
ASSUMED PT CARE AT 1900, PT IS AWAKE, ALERT AND ORIENTEDX4, MAKES NEEDS KNOWN, ASSESSMENTS CHARTED, PT HAD ELEVATED BP, DIRECTOR EPIDEMIOLOGY NOTIFIED, ORDERS RECEIVED, PT IS SR WITH 1DEGREE AVB ON THE MONITOR, SLEPT WELL THROUGH THE NIGHT, WILL CONTINUE TO MONITOR
[2020-04-20 06:02] LABS: ALBUMIN 2.8 g/dL (3.4-5.0); CALCIUM 8.3 mg/dL (8.5-10.1); CREATININE 1.2 mg/dL (0.6-1.0); PHOSPHORUS 3.4 mg/dL (2.5-4.9); POTASSIUM 4.5 mmol/L (3.5-5.1)
[2020-04-20 07:42] VITALS: BP 160/54
[2020-04-20 10:53] VITALS: BP 160/54
--- NOTE | 2020-04-20 11:56 | NUR ---
ASSUMED CARE AT SHIFT CHANGE, ALERT AND ORIENTED X4. BETTE ANY DISCOMFORT AND SR ON THE MONITOR. AFEBRILE AND BP 160/54. S/B DR [place] AND CL[place]. MEDICATION AND DISCHARGE INSTRUCTION GIVEN TO PATIENT. WAITING FOR PATIENT SON TO TAKE HER HOME.
--- NOTE | 2020-04-21 13:14 | HC ---
[facility] [address] [place] [address] CONSULTATION Name: RENE MOON Room #: 211-P [facility] IN M.R.#: [id number] Admission: 04/17/20 Attend Phys: Ash Markham MD Discharge: 04/20/20 Date of : 45 Report #: [id number] THIS REPORT FOR: cc: Nnamdi Torres MD,Venkata Chaney MD ~ CC: Nnamdi Markham The patient was seen by myself and Dr. Donato Willis. The patient is known to our service, has a history of coronary artery disease and has been recently treated for UTI in preparation for coronary artery bypass graft. The patient had a known UTI colonized with Klebsiella and had been put on Bactrim. HISTORY OF PRESENT ILLNESS: The patient reportedly was out boating yesterday and while being out and about felt very fatigued and generalized weakness. She came to the Emergency Room, was found to have increased creatinine level initially 2.4 and potassium level 7.3. The patient was then promptly admitted and was treated for the potassium with Kayexalate. Her current potassium level was 4.7 and creatinine presumably acute tubular necrosis. Creatinine levels are now 2.2. Had been treated overnight with normal saline IV general hydration. The patient states she is feeling better at this time. PAST MEDICAL HISTORY: Coronary artery disease, hyperlipidemia, essential hypertension, fatigue, GERD, gout, overactive bladder and shortness of breath. Diabetes type 2. PAST SURGICAL HISTORY: Surgical fixation for left ankle fracture, hysterectomy, right knee arthroscopic surgery, left knee arthroscopic surgery x 2, tear duct surgery to the left side. SOCIAL HISTORY: She does not smoke, does not use alcohol. FAMILY HISTORY: Mother had a history of heart failure. Father had a history of aortic aneurysm. ALLERGIES: As follows, KEFLEX, LORTAB, AND TRAMADOL. HOME MEDICATIONS: 1. Flomax 0.4 mg daily. 2. Plavix 75 mg daily. 3. Lipitor 40 mg at bedtime. 4. Carvedilol 6.25 mg daily. 5. Losartan/hydrochlorothiazide daily 100/25. 6. Aspirin 81 mg daily. [facility] [address] [place] [address] CONSULTATION Name: RENE MOON Room #: [facility].#: [id number] Admission: 04/17/20 Attend Phys: Ash Markham MD Discharge: 04/20/20 Date of : 45 Report #: [id number] 7. Protonix 40 mg at bedtime. 8. Lantus 33 units subcutaneous at bedtime. 9. Humalog 112 units subcutaneous a.c. 5 minutes. 10. Allopurinol 300 mg daily. PHYSICAL EXAMINATION: VITAL SIGNS: Blood pressure 151/47, heart rate 52, respirations 18, temperature is 36.7, O2 sat 97% on room air. GENERAL: The patient is well-developed, well-nourished, slightly obese, has normal speech and mentation. Eyes are PERRLA. She is normocephalic. Gaze appearing conjugate in all positions. No evidence of nystagmus CARDIOVASCULAR: Shows S1, S2, without murmur, gallops, or thrills. RESPIRATORY: Lungs are clear and equal bilaterally. ABDOMEN: Soft, nontender. NEUROLOGIC: Cranial nerves 2-12 are examined and intact. REVIEW OF SYSTEMS: A 12 point review of systems completed. The patient does complain of some previous fatigue, slightly continuing. Does not have any issues sleeping. HEENT: She denies headache, vertigo or hearing loss. Respiratory: Previously had some shortness of breath with dyspnea on exertion. Denies any orthopnea. Denies wheezing or coughing. Denies chest pain currently, jaw pain, arm pain or murmurs. Denies any rashes, psoriasis or eczema. She denies any cold feet, night sweats or lack of concentration. Denies any current nausea, vomiting, diarrhea or constipation. Denies any painful urination. The patient did report that she does straight cath twice a day and has had frequent UTIs over the past 3 years. Denies any lupus, rheumatoid arthritis or celiac disease. LABORATORY DATA: As follows: CBC done on 04/17/2020, white count is 5.4, hemoglobin 10.3, hematocrit 31.5, platelet count is 136. Chemistry done today, sodium is 141, potassium 4.7 and is down from 7.3 yesterday. Chloride is 110, carbon dioxide 20, BUN is 50, creatinine is 2.2 and glucose 106. She did have a UA done yet this morning and is negative. ASSESSMENT: Coronary artery disease with multiple blockages with recent urinary tract infection colonized with Klebsiella and has been treated with Bactrim. The patient has hyperkalemia, which is improving with Kayexalate. The patient also has acute renal failure, presumably acute tubular necrosis. Her previous creatinine level done on 04/04/2020 was 1.4. Creatinine level currently is 2.2 with normal saline IV hydration. Also diabetes type 2. PLAN: At this point, no surgical planning. We would like the patient continue treatment for her hyperkalemia and renal insufficiency, possibly acute tubular [facility] [address] [place] [address] CONSULTATION Name: RENE MOON Room #: 211-P [facility] IN .R.#: [id number] Admission: 04/17/20 Attend Phys: Ash Markham MD Discharge: 04/20/20 Date of : 45 Report #: [id number] necrosis. We will plan coronary artery bypass grafting as an outpatient basis and we will continue to follow the patient while in the hospital. <ELECTRONICALLY SIGNED> By: GLENN Barbosa 04/21/20 1314 1103 1526 GLENN Barbosa /nt
[2020-04-21] MEDS ORDERED: CARVEDILOL12.5 MG PO (15:46)
[2020-04-21] MEDS ORDERED: ISOSORBIDE MONO60 M1 PO (16:00)
== END 2020-04-20 12:14 | disposition home or self-care (01) | DRG 302 ==
LOC: ER 11:47 → 2N 14:36 → EROBS 14:36 → 2N 15:57
PROVIDERS: Emergency Medicine; Internal Medicine; Nurse Practitioner; ADMIT Hospitalist; ATTEND Hospitalist
DX: I25.110 Atherosclerotic heart disease of native coronary artery with unstable angina pectoris (principal); N17.0 Acute kidney failure with tubular necrosis; N39.0 Urinary tract infection, site not specified; E87.5 Hyperkalemia; E11.51 Type 2 diabetes mellitus with diabetic peripheral angiopathy without gangrene; M79.7 Fibromyalgia; N18.9 Chronic kidney disease, unspecified; I12.9 Hypertensive chronic kidney disease with stage 1 through stage 4 chronic kidney disease, or unspecified chronic kidney disease; E11.22 Type 2 diabetes mellitus with diabetic chronic kidney disease; E78.5 Hyperlipidemia, unspecified; I45.10 Unspecified right bundle-branch block; B96.1 Klebsiella pneumoniae [K. pneumoniae] as the cause of diseases classified elsewhere; M62.84 Sarcopenia; R33.9 Retention of urine, unspecified; E53.8 Deficiency of other specified B group vitamins; G47.00 Insomnia, unspecified; M19.90 Unspecified osteoarthritis, unspecified site; K21.9 Gastro-esophageal reflux disease without esophagitis; M48.00 Spinal stenosis, site unspecified; M10.9 Gout, unspecified; K57.90 Diverticulosis of intestine, part unspecified, without perforation or abscess without bleeding; Z87.440 Personal history of urinary (tract) infections; Z95.828 Presence of other vascular implants and grafts; Z90.49 Acquired absence of other specified parts of digestive tract; Z90.710 Acquired absence of both cervix and uterus; Z79.899 Other long term (current) drug therapy; Z79.82 Long term (current) use of aspirin; Z79.4 Long term (current) use of insulin; Z88.8 Allergy status to other drugs, medicaments and biological substances; Z82.49 Family history of ischemic heart disease and other diseases of the circulatory system
CPT/HCPCS: 10081

== ENCOUNTER → 2020-04-25 | Outpatient (CLI) | payer OTHER, BC ==
[~2020-04-25] MED LIST changes: +CARVEDILOL12.5 MG PO; +COREG6.25 MG PO; +COZAAR 50 MG TA50 M1 PO; +GABAPENTIN100 MG PO; +IMDUR 60 MG TAB60 M1 PO; +ISOSORBIDE MONO60 M1 PO; +NITROSTAT0.4 M1 SUBLING; +PACERONE 200 M200 M1 PO
== END ==
LOC: LAB 04-24 15:02
PROVIDERS: ATTEND Physician Assistant
DX: Z20.828 Contact with and (suspected) exposure to other viral communicable diseases (principal)

== ENCOUNTER 2020-05-21 16:03 | Emergency (ER) | payer OTHER, BC ==
[~2020-05-21] VITALS: Ht 157.5 cm; Wt 86.2 kg
[2020-05-21 18:50] LABS: CALCIUM 8.7 mg/dL (8.5-10.1); CREATININE 1.1 mg/dL (0.6-1.0); POTASSIUM 4.8 mmol/L (3.5-5.1)
[2020-05-21 20:20] VITALS: BP 202/37
== END 2020-05-21 20:27 | disposition home or self-care (01) ==
LOC: ER 16:03
PROVIDERS: Emergency Medicine
DX: R06.00 Dyspnea, unspecified (principal); R22.41 Localized swelling, mass and lump, right lower limb; I10 Essential (primary) hypertension; K21.9 Gastro-esophageal reflux disease without esophagitis; E78.5 Hyperlipidemia, unspecified; E11.9 Type 2 diabetes mellitus without complications; M10.9 Gout, unspecified; Z90.49 Acquired absence of other specified parts of digestive tract; Z90.710 Acquired absence of both cervix and uterus; Z79.82 Long term (current) use of aspirin; Z79.4 Long term (current) use of insulin; Z79.899 Other long term (current) drug therapy; Z88.2 Allergy status to sulfonamides; Z88.1 Allergy status to other antibiotic agents; Z88.8 Allergy status to other drugs, medicaments and biological substances

== ENCOUNTER → 2020-05-22 | Outpatient (CLI) | payer OTHER, BC ==
[2020-05-22 14:38] LABS: BF NUCLEATED CELLS 470 /mm3; BF RBC 34239 /mm3
[2020-05-22 14:57] LABS: CLARITY CLOUDY; COLOR RED; SOURCE THORACENTESIS; TOTAL VOLUME 500 mL
[2020-05-22 15:19] LABS: BF MACROPHAGE 5 %; BF NEUTROPHILS 6 %
[2020-05-22 15:54] LABS: SOURCE THORACENTESIS
[2020-05-24 10:07] LABS: BODY FLUID ALBUMIN 1.5 g/dL (Not Estab.); BODY FLUID AMYLASE 22 U/L (()); BODY FLUID GLUCOSE 113 mg/dL (()); BODY FLUID LDH 104 IU/L (()); BODY FLUID PROTEIN 2.6 g/dL (())
--- NOTE | 2020-05-27 14:06 | PATH ---
[facility] [address] [place] [address] PATHOLOGY RPT PROCEDURE Name: RENE MOON Room #: REG NO Lomeli.#: [id number] Admission: 05/22/20 Date of : 45 Discharge: Report #: [id number] Path Case #: [id number] Note [facility] Accession Number: [id number] TESTS RESULT FLAG UNITS REF RANGE LAB Clinician Provided Cytology Information No. of containers..01 Other (Miscellaneous) Source: PLEURAL FLUID DIAGNOSIS: 02 PLEURAL FLUID NEGATIVE FOR MALIGNANT CELLS. MESOTHELIAL CELLS ARE PRESENT. THIS INTERPRETATION INCLUDES EVALUATION OF A CELL BLOCK. SEE COMMENT COMMENT: Immunohistochemical stains are performed on the specimen as follows (A1; appropriate controls): BerEP4 - Negative CD68 - Highlights macrophages Calretinin - Highlights mesothelial cells Desmin - Highlights mesothelial cells These findings support the above diagnosis. Signed out by: 02 Matthias Krueger MD, Pathologist NPI- [id number] Performed by: 01 Ladi Moctezuma, Tier Lift Operator ([facility]) Gross description: 01 17ML, RED, 1TP, 1CB /LCS 05/23/2020 0732 Local FLAG LEGEND: L-Low Normal,H-High Normal,LL-Alert Low,HH-Alert High <-Panic Low,>-Panic High,A-Abnormal,AA-Critical Abnormal Performed at: 01 [facility] [address] [place] [address] Asad Cantor MD, 02 [facility] [address] [address] Saira Simpson MD, Specimen Comment: A courtesy copy of this report has been sent to [phone] Specimen Comment: Report sent to Performed at: 01 [place] [address] PATHOLOGY RPT PROCEDURE Name: RENE MOON Room #: REG NO Carpio#: [id number] Admission: 05/22/20 Date of : 45 Discharge: Report #: [id number] Path Case #: [id number] [facility] [place] [address], [place], [place] [id number] MD Asad Cantor MD Phone: [phone]
== END ==
LOC: ULTRA 11:51
PROVIDERS: ATTEND Surgery Vascular Surgery
DX: J90 Pleural effusion, not elsewhere classified (principal); R06.02 Shortness of breath; E11.22 Type 2 diabetes mellitus with diabetic chronic kidney disease; N18.9 Chronic kidney disease, unspecified; I25.10 Atherosclerotic heart disease of native coronary artery without angina pectoris; Z87.440 Personal history of urinary (tract) infections; Z79.84 Long term (current) use of oral hypoglycemic drugs; Z79.899 Other long term (current) drug therapy; Z98.890 Other specified postprocedural states

== ENCOUNTER → 2020-05-29 | Outpatient (CLI) | payer OTHER, BC | LOC: SJCVC 14:38 | PROVIDERS: ATTEND Internal Medicine | DX: I44.0 Atrioventricular block, first degree (principal); I25.10 Atherosclerotic heart disease of native coronary artery without angina pectoris; I10 Essential (primary) hypertension; E78.5 Hyperlipidemia, unspecified; I73.9 Peripheral vascular disease, unspecified; I65.23 Occlusion and stenosis of bilateral carotid arteries; E11.51 Type 2 diabetes mellitus with diabetic peripheral angiopathy without gangrene; R00.1 Bradycardia, unspecified; I45.4 Nonspecific intraventricular block; R94.31 Abnormal electrocardiogram [ECG] [EKG]; Z95.1 Presence of aortocoronary bypass graft; Z79.4 Long term (current) use of insulin ==

== ENCOUNTER 2020-06-12 16:08 | Emergency (ER) | payer OTHER, BC ==
[~2020-06-12] VITALS: Ht 157.5 cm; Wt 81.2 kg
[2020-06-12 17:10] LABS: ABSOLUTE NEUTROPHILS 6.1 thou/uL (1.4-8.2); BASOPHILS 0.7 % (0.0-2.0); EOSINOPHILS 2.8 % (0.0-3.0); HEMATOCRIT 32.9 % (37.0-47.0); HEMOGLOBIN 10.7 gm/dL (12.0-15.0); LYMPHOCYTES 11.5 % (24.0-44.0); MCHC 32.4 g/dL (28.0-37.0); MCV 92.4 fL (80.0-100.0); MONOCYTES 5.8 % (1.0-8.0); POLYS 79.2 % (36.0-66.0); RBC 3.56 mil/uL (4.20-5.00); RDW 17.8 % (10.5-14.5); WBC 7.7 thou/uL (4.0-11.0)
[2020-06-12 17:23] LABS: ANION GAP 10 mmol/L (7-16); BUN 72 mg/dL (7-18); CALCIUM 9.8 mg/dL (8.5-10.1); CHLORIDE 99 mmol/L (98-107); CO2 27 mmol/L (21-32); CREATININE 2.1 mg/dL (0.6-1.0); GLUCOSE 177 mg/dL (74-106); POTASSIUM 4.5 mmol/L (3.5-5.1); SODIUM 136 mmol/L (136-145)
[2020-06-12 17:34] LABS: ALBUMIN 3.7 g/dL (3.4-5.0); LIPASE 172 U/L (73-393); MAGNESIUM 2.3 mg/dL (1.8-2.4); SGOT 23 U/L (15-37); SGPT 24 U/L (30-65); TOTAL BILIRUBIN 0.4 mg/dL (0.2-1.0); TROPONIN-I <0.06 ng/mL (<0.06)
[2020-06-12 17:42] LABS: LARGE PLATELETS FEW; PLATELET COUNT 172 thou/uL (150-400)
[2020-06-12 19:01] LABS: URINE BILIRUBIN NEGATIVE (Negative); URINE BLOOD TRACE (Negative); URINE CLARITY CLEAR; URINE COLOR YELLOW; URINE GLUCOSE-RANDOM* NEGATIVE (Negative); URINE KETONES NEGATIVE (Negative); URINE LEUKOCYTES-REFLEX TRACE (Negative); URINE NITRITE-REFLEX NEGATIVE (Negative); URINE PROTEIN (DIPSTICK) NEGATIVE (Negative); URINE UROBILINOGEN 0.2 E.U./dl (0.2-1.0)
[2020-06-12 19:30] VITALS: BP 144/58
--- NOTE | 2020-06-13 07:44 | EKG ---
[facility] [address] [place] [address] ELECTROCARDIOGRAM REPORT Name: RENE MOON Room #: DEP [facility]#: [id number] Admission: 06/12/20 Attend Phys: Discharge: 06/12/20 Date of : 45 Report #: [id number] THIS REPORT FOR: cc: Nnamdi Torres MD, Christopher B. MD Santiago, Patrick MD [facility] ~ THIS REPORT FOR: //name// [facility] ED Test Date: 2020-06-12 Test Time: 17:15:32 Pat Name: RENE MOON Department: Room: Gender: F Transportation Planning Technician: sekou : 1945 Requested By: Jacqui Moyer Order Number: [id number] MD: Aquiles Sanches Measurements Intervals [place] Rate: 54 P: 242 IN: 154 QRS: -21 QRSD: 167 T: QT: 624 QTc: 592 Interpretive Statements SINUS RHYTHM Right bundle branch block Probable left ventricular hypertrophy Prolonged QT interval Compared to ECG 05/03/2020 07:40:58 No significant change Electronically Signed On 06-13-2020 7:43:52 CDT by Aquiles Sanches [email or web address] <ELECTRONICALLY SIGNED> By: Aquiles Sanches MD, [facility] 06/13/20 0743 1715 1715 Aquiles Sanches MD, [facility] /EPI
== END 2020-06-12 19:51 | disposition home or self-care (01) ==
LOC: ER 16:08
PROVIDERS: Physician Assistant
DX: I12.9 Hypertensive chronic kidney disease with stage 1 through stage 4 chronic kidney disease, or unspecified chronic kidney disease (principal); E11.22 Type 2 diabetes mellitus with diabetic chronic kidney disease; N18.9 Chronic kidney disease, unspecified; M79.7 Fibromyalgia; E78.5 Hyperlipidemia, unspecified; M19.90 Unspecified osteoarthritis, unspecified site; M10.9 Gout, unspecified; K21.9 Gastro-esophageal reflux disease without esophagitis; I25.10 Atherosclerotic heart disease of native coronary artery without angina pectoris; Z79.82 Long term (current) use of aspirin; Z79.4 Long term (current) use of insulin; Z79.899 Other long term (current) drug therapy; Z88.2 Allergy status to sulfonamides; Z88.1 Allergy status to other antibiotic agents; Z88.8 Allergy status to other drugs, medicaments and biological substances; Z77.22 Contact with and (suspected) exposure to environmental tobacco smoke (acute) (chronic)

== ENCOUNTER → 2020-06-16 | Outpatient (CLI) | payer OTHER, BC | LOC: SJCVC 09:59 | PROVIDERS: ATTEND Internal Medicine | DX: I44.0 Atrioventricular block, first degree (principal); R94.31 Abnormal electrocardiogram [ECG] [EKG]; R00.1 Bradycardia, unspecified; I45.4 Nonspecific intraventricular block; I25.10 Atherosclerotic heart disease of native coronary artery without angina pectoris; I35.0 Nonrheumatic aortic (valve) stenosis; E11.59 Type 2 diabetes mellitus with other circulatory complications; E11.22 Type 2 diabetes mellitus with diabetic chronic kidney disease; I13.0 Hypertensive heart and chronic kidney disease with heart failure and stage 1 through stage 4 chronic kidney disease, or unspecified chronic kidney disease; I50.32 Chronic diastolic (congestive) heart failure; N18.3 Chronic kidney disease, stage 3 (moderate); I65.23 Occlusion and stenosis of bilateral carotid arteries; I73.9 Peripheral vascular disease, unspecified; Z79.899 Other long term (current) drug therapy ==

== ENCOUNTER 2020-08-01 12:55 | Emergency (ER) | payer OTHER, BC ==
[~2020-08-01] VITALS: Ht 157.5 cm; Wt 83.9 kg
[2020-08-01 14:03] LABS: ABSOLUTE NEUTROPHILS 4.3 thou/uL (1.4-8.2); BASOPHILS 0.5 % (0.0-2.0); EOSINOPHILS 2.7 % (0.0-3.0); HEMATOCRIT 33.6 % (37.0-47.0); HEMOGLOBIN 10.8 gm/dL (12.0-15.0); LYMPHOCYTES 22.9 % (24.0-44.0); MCH 29.7 pg (26.0-34.0); MCV 92.7 fL (80.0-100.0); MONOCYTES 6.3 % (1.0-8.0); PLATELET COUNT 150 thou/uL (150-400); POLYS 67.6 % (36.0-66.0); RBC 3.63 mil/uL (4.20-5.00); RDW 18.1 % (10.5-14.5); WBC 6.3 thou/uL (4.0-11.0)
[2020-08-01 14:22] LABS: ANION GAP 10 mmol/L (7-16); BUN 77 mg/dL (7-18); CALCIUM 8.9 mg/dL (8.5-10.1); CHLORIDE 104 mmol/L (98-107); CO2 23 mmol/L (21-32); CREATININE 2.1 mg/dL (0.6-1.0); GLUCOSE 154 mg/dL (74-106); POTASSIUM 4.1 mmol/L (3.5-5.1); SODIUM 137 mmol/L (136-145)
[2020-08-01 14:26] LABS: ALBUMIN 3.3 g/dL (3.4-5.0); DIRECT BILIRUBIN 0.1 mg/dL (<0.1-0.2); SGOT 15 U/L (15-37); SGPT 12 U/L (30-65); TOTAL BILIRUBIN 0.5 mg/dL (0.2-1.0); TOTAL PROTEIN 6.9 g/dL (6.4-8.2); TROPONIN-I <0.06 ng/mL (<0.06)
[2020-08-01] MEDS ORDERED: KLOR-CON 10 ER10 MEQ PO (14:31)
[2020-08-01] MEDS ORDERED: TORSEMIDE5 MG PO (14:32)
[2020-08-01 15:22] LABS: URINE BILIRUBIN NEGATIVE (Negative); URINE BLOOD NEGATIVE (Negative); URINE CLARITY CLOUDY; URINE COLOR YELLOW; URINE GLUCOSE-RANDOM* NEGATIVE (Negative); URINE KETONES NEGATIVE (Negative); URINE NITRITE-REFLEX NEGATIVE (Negative); URINE PROTEIN (DIPSTICK) NEGATIVE (Negative); URINE SPECIFIC GRAVITY 1.015 (1.005-1.035); URINE UROBILINOGEN 0.2 E.U./dl (0.2-1.0)
[2020-08-01 15:23] LABS: URINE LEUKOCYTES-REFLEX 2+ (Negative)
[2020-08-01 15:32] LABS: ANISOCYTOSIS 2+; PLATELET ESTIMATE NORMAL
[2020-08-01 15:45] LABS: AMORPHOUS URATES Moderate /LPF (None Seen); CASTS None Seen /LPF (None Seen); SQUAMOUS 0-3 Few /LPF (0-3); URINE RBC None Seen /HPF (0-2); URINE WBC-REFLEX 0-5 Rare /HPF (0-5)
--- NOTE | 2020-08-01 15:53 | EKG ---
[facility] Quin [address]ke[address] [place] [address] ELECTROCARDIOGRAM REPORT Name: RENE MOON Room #: REG [facility]#: [id number] Admission: 08/01/20 Attend Phys: Discharge: Date of : 45 Report #: [id number] THIS REPORT FOR: cc: Nnamdi Torres MD, Christopher B. MD Lundgren,Tonio Steele MD [facility] ~ THIS REPORT FOR: //name// [facility] ED Test Date: 2020-08-01 Test Time: 12:58:44 Pat Name: RENE MOON Department: Room: Gender: F Mix House Tender: [facility] : 1945 Requested By: Daisy Koo Order Number: [id number] MD: Tonio Bowles Measurements Intervals [place] Rate: 49 P: 42 HI: 217 QRS: -10 QRSD: 146 T: 97 QT: 521 QTc: 471 Interpretive Statements Sinus bradycardia Right bundle branch block Prolonged QT interval Compared to ECG 06/12/2020 17:15:32 No significant change was found Electronically Signed On 08-01-2020 15:53:17 ELEMENTARY SPANISH TEACHER by Tonio Bowles [email or web address] <ELECTRONICALLY SIGNED> By: Tonio Bowles MD, FAC 08/01/20 1553 1258 1258 Tonio Bowles MD, [facility] /EPI
[2020-08-01] MEDS ORDERED: ZOFRAN ODT4 MG PO (16:14)
[2020-08-01] MEDS ORDERED: MACROBID 100 M100 M1 PO (16:14)
[2020-08-01 17:01] VITALS: BP 147/63
== END 2020-08-01 17:53 | disposition home or self-care (01) ==
LOC: ER 12:55
PROVIDERS: Emergency Medicine
DX: N39.0 Urinary tract infection, site not specified (principal); R11.2 Nausea with vomiting, unspecified; I10 Essential (primary) hypertension; K21.9 Gastro-esophageal reflux disease without esophagitis; E11.9 Type 2 diabetes mellitus without complications; E78.5 Hyperlipidemia, unspecified; I25.10 Atherosclerotic heart disease of native coronary artery without angina pectoris; Z90.710 Acquired absence of both cervix and uterus; Z90.49 Acquired absence of other specified parts of digestive tract; Z79.82 Long term (current) use of aspirin; Z79.4 Long term (current) use of insulin; Z79.899 Other long term (current) drug therapy; Z88.2 Allergy status to sulfonamides; Z88.8 Allergy status to other drugs, medicaments and biological substances

== ENCOUNTER → 2020-09-23 | Outpatient (CLI) | payer OTHER, BC ==
[~2020-09-23] MED LIST changes: +KLOR-CON 10 ER10 MEQ PO; +MACROBID 100 M100 M1 PO; +TORSEMIDE5 MG PO; +ZOFRAN ODT4 MG PO
== END ==
LOC: SJCVCIMAG 08:54
PROVIDERS: ATTEND Nuclear Medicine Nuclear Cardiology
DX: I65.23 Occlusion and stenosis of bilateral carotid arteries (principal); I73.9 Peripheral vascular disease, unspecified; M79.604 Pain in right leg; M79.605 Pain in left leg; I25.10 Atherosclerotic heart disease of native coronary artery without angina pectoris; I77.9 Disorder of arteries and arterioles, unspecified; E11.22 Type 2 diabetes mellitus with diabetic chronic kidney disease; I12.9 Hypertensive chronic kidney disease with stage 1 through stage 4 chronic kidney disease, or unspecified chronic kidney disease; N18.30 Chronic kidney disease, stage 3 unspecified; E78.00 Pure hypercholesterolemia, unspecified; E11.51 Type 2 diabetes mellitus with diabetic peripheral angiopathy without gangrene; I35.0 Nonrheumatic aortic (valve) stenosis; K21.9 Gastro-esophageal reflux disease without esophagitis; M10.9 Gout, unspecified; Z95.828 Presence of other vascular implants and grafts; Z95.1 Presence of aortocoronary bypass graft; Z79.4 Long term (current) use of insulin; Z79.82 Long term (current) use of aspirin; Z79.899 Other long term (current) drug therapy

== ENCOUNTER → 2020-09-24 | Outpatient (CLI) | payer OTHER, BC | LOC: SJCVC 10:58 | PROVIDERS: ATTEND Internal Medicine | DX: R94.31 Abnormal electrocardiogram [ECG] [EKG] (principal); I45.10 Unspecified right bundle-branch block; E11.22 Type 2 diabetes mellitus with diabetic chronic kidney disease; I13.0 Hypertensive heart and chronic kidney disease with heart failure and stage 1 through stage 4 chronic kidney disease, or unspecified chronic kidney disease; I50.32 Chronic diastolic (congestive) heart failure; N18.30 Chronic kidney disease, stage 3 unspecified; I25.10 Atherosclerotic heart disease of native coronary artery without angina pectoris; I35.0 Nonrheumatic aortic (valve) stenosis; I65.23 Occlusion and stenosis of bilateral carotid arteries; I73.9 Peripheral vascular disease, unspecified; E11.51 Type 2 diabetes mellitus with diabetic peripheral angiopathy without gangrene; E78.5 Hyperlipidemia, unspecified; R55 Syncope and collapse; K21.9 Gastro-esophageal reflux disease without esophagitis; M10.9 Gout, unspecified; Z95.1 Presence of aortocoronary bypass graft; Z79.4 Long term (current) use of insulin; Z79.82 Long term (current) use of aspirin; Z79.899 Other long term (current) drug therapy ==

== ENCOUNTER → 2020-09-24 | Outpatient (CLI) | payer OTHER, BC | LOC: LAB 12:04 | PROVIDERS: ATTEND Internal Medicine | DX: Z20.828 Contact with and (suspected) exposure to other viral communicable diseases (principal) ==

== ENCOUNTER → 2020-10-01 | Outpatient (CLI) | payer OTHER, BC ==
--- NOTE | ~2020-10-01 | CATHLAB ---
[facility] [address] [place] [address] INVASIVE PROCEDURE REPORT Name: RENE MOON Room #: REG NO Amanda.#: [id number] Admission: 10/01/20 Attend Phys: Tonio Bowles MD, Discharge: Date of : 45 Report #: [id number] THIS REPORT FOR: cc: Nnamdi Torres MD, Christopher B. MD Lundgren,Tonio Steele MD [facility] ~ REASON FOR PROCEDURE: Medtronic LINQ loop recorder. INDICATIONS: Recurrent syncope. DESCRIPTION OF PROCEDURE: The patient was brought into the Cardiology holding area. Full written and informed consent was obtained. The left anterior chest was prepped and draped in a sterile fashion. A 1 cm stab wound was made and a Medtronic revealed LINQ was placed without difficulty. Serial number [id number]. Thresholds were excellent. A single bioabsorbable stitch was placed. The wound was covered with a sterile dressing. She tolerated the procedure well. SUMMARY: Successful Medtronic implantable loop recorder, model 73719 for a history of syncope. By: 0840 0856 Tonio Bowles MD, FACC /nt
[2020-10-01 08:09] VITALS: BP 141/65
== END | disposition home or self-care (01) ==
LOC: CATH 06:40
PROVIDERS: ATTEND Internal Medicine
DX: R55 Syncope and collapse (principal); I12.9 Hypertensive chronic kidney disease with stage 1 through stage 4 chronic kidney disease, or unspecified chronic kidney disease; E11.22 Type 2 diabetes mellitus with diabetic chronic kidney disease; N18.9 Chronic kidney disease, unspecified; I25.10 Atherosclerotic heart disease of native coronary artery without angina pectoris; E78.5 Hyperlipidemia, unspecified; I73.9 Peripheral vascular disease, unspecified; M19.90 Unspecified osteoarthritis, unspecified site; K21.9 Gastro-esophageal reflux disease without esophagitis; M10.9 Gout, unspecified; Z98.890 Other specified postprocedural states; Z79.899 Other long term (current) drug therapy; Z95.1 Presence of aortocoronary bypass graft; Z79.4 Long term (current) use of insulin; Z88.2 Allergy status to sulfonamides; Z88.8 Allergy status to other drugs, medicaments and biological substances

== ENCOUNTER 2020-12-18 10:25 | Emergency (ER) | payer OTHER, BC ==
[~2020-12-18] VITALS: Ht 157.5 cm; Wt 81.2 kg
[2020-12-18 11:29] LABS: ABSOLUTE NEUTROPHILS 7.2 thou/uL (1.4-8.2); BASOPHILS 0.9 % (0.0-2.0); EOSINOPHILS 1.9 % (0.0-3.0); HEMATOCRIT 35.1 % (37.0-47.0); HEMOGLOBIN 11.2 gm/dL (12.0-15.0); LYMPHOCYTES 16.1 % (24.0-44.0); MCH 30.4 pg (26.0-34.0); MCHC 31.9 g/dL (28.0-37.0); MCV 95.2 fL (80.0-100.0); MONOCYTES 4.3 % (1.0-8.0); POLYS 76.8 % (36.0-66.0); RBC 3.69 mil/uL (4.20-5.00); RDW 17.8 % (10.5-14.5); WBC 9.9 thou/uL (4.0-11.0)
[2020-12-18 11:43] LABS: CALCIUM 8.8 mg/dL (8.5-10.1); CREATININE 1.3 mg/dL (0.6-1.0); POTASSIUM 4.4 mmol/L (3.5-5.1)
[2020-12-18 11:51] LABS: ALBUMIN 3.3 g/dL (3.4-5.0); TOTAL BILIRUBIN 0.3 mg/dL (0.2-1.0); TOTAL PROTEIN 6.7 g/dL (6.4-8.2)
[2020-12-18 11:57] LABS: URINE BILIRUBIN NEGATIVE (Negative); URINE BLOOD 2+ (Negative); URINE CLARITY CLEAR; URINE COLOR YELLOW; URINE GLUCOSE-RANDOM* NEGATIVE (Negative); URINE KETONES NEGATIVE (Negative); URINE LEUKOCYTES-REFLEX NEGATIVE (Negative); URINE NITRITE-REFLEX NEGATIVE (Negative); URINE PROTEIN (DIPSTICK) 2+ (Negative); URINE SPECIFIC GRAVITY >= 1.030 (1.005-1.035); URINE UROBILINOGEN 0.2 E.U./dl (0.2-1.0)
[2020-12-18 12:09] LABS: CASTS None Seen /LPF (None Seen); SQUAMOUS >10 Many /LPF (0-3)
[2020-12-18 12:10] LABS: URINE WBC-REFLEX 6-15 Few /HPF (0-5)
[2020-12-18 12:11] LABS: BACTERIA-REFLEX >30 Many /HPF (None Seen); CRYSTALS None Seen /LPF (None Seen); URINE RBC 3-10 Few /HPF (0-2)
[2020-12-18 12:33] LABS: PLATELET COUNT 118 thou/uL (150-400)
[2020-12-18] MEDS ORDERED: FLEXERIL PO (14:01)
[2020-12-18] MEDS ORDERED: NORCO5 PO (14:02)
[2020-12-18 14:27] VITALS: BP 162/68
== END 2020-12-18 14:28 | disposition home or self-care (01) ==
LOC: ER 10:25
PROVIDERS: Emergency Medicine
DX: M54.5 Low back pain (principal); R11.2 Nausea with vomiting, unspecified; M79.605 Pain in left leg; M79.7 Fibromyalgia; E78.5 Hyperlipidemia, unspecified; M19.90 Unspecified osteoarthritis, unspecified site; I10 Essential (primary) hypertension; K21.9 Gastro-esophageal reflux disease without esophagitis; I25.10 Atherosclerotic heart disease of native coronary artery without angina pectoris; E11.51 Type 2 diabetes mellitus with diabetic peripheral angiopathy without gangrene; Z90.49 Acquired absence of other specified parts of digestive tract; Z90.711 Acquired absence of uterus with remaining cervical stump; Z98.890 Other specified postprocedural states; Z95.5 Presence of coronary angioplasty implant and graft; Z79.899 Other long term (current) drug therapy; Z79.82 Long term (current) use of aspirin; Z79.4 Long term (current) use of insulin; Z88.2 Allergy status to sulfonamides; Z88.6 Allergy status to analgesic agent; Z88.1 Allergy status to other antibiotic agents

== ENCOUNTER → 2020-12-31 | Outpatient (CLI) | payer OTHER, BC ==
[~2020-12-31] MED LIST changes: +FLEXERIL PO; +NORCO5 PO
== END ==
LOC: SJCVC 10:50
PROVIDERS: ATTEND Internal Medicine
DX: R94.31 Abnormal electrocardiogram [ECG] [EKG] (principal); I45.10 Unspecified right bundle-branch block; R00.1 Bradycardia, unspecified; E11.22 Type 2 diabetes mellitus with diabetic chronic kidney disease; I13.0 Hypertensive heart and chronic kidney disease with heart failure and stage 1 through stage 4 chronic kidney disease, or unspecified chronic kidney disease; I50.32 Chronic diastolic (congestive) heart failure; N18.30 Chronic kidney disease, stage 3 unspecified; I25.10 Atherosclerotic heart disease of native coronary artery without angina pectoris; R55 Syncope and collapse; I35.0 Nonrheumatic aortic (valve) stenosis; E78.5 Hyperlipidemia, unspecified; I65.23 Occlusion and stenosis of bilateral carotid arteries; I73.9 Peripheral vascular disease, unspecified; E11.51 Type 2 diabetes mellitus with diabetic peripheral angiopathy without gangrene; K21.9 Gastro-esophageal reflux disease without esophagitis; M10.9 Gout, unspecified; Z95.1 Presence of aortocoronary bypass graft; Z90.710 Acquired absence of both cervix and uterus; Z98.890 Other specified postprocedural states; Z88.8 Allergy status to other drugs, medicaments and biological substances; Z79.82 Long term (current) use of aspirin; Z79.4 Long term (current) use of insulin; Z79.899 Other long term (current) drug therapy; Z82.49 Family history of ischemic heart disease and other diseases of the circulatory system

== ENCOUNTER → 2021-03-24 | Outpatient (CLI) | payer OTHER, BC | LOC: SJCVCIMAG 07:41 | PROVIDERS: ATTEND Nuclear Medicine Nuclear Cardiology | DX: I70.203 Unspecified atherosclerosis of native arteries of extremities, bilateral legs (principal); E11.51 Type 2 diabetes mellitus with diabetic peripheral angiopathy without gangrene; I77.9 Disorder of arteries and arterioles, unspecified; I25.10 Atherosclerotic heart disease of native coronary artery without angina pectoris; E78.00 Pure hypercholesterolemia, unspecified; E78.5 Hyperlipidemia, unspecified; K21.9 Gastro-esophageal reflux disease without esophagitis; M10.9 Gout, unspecified; Z95.1 Presence of aortocoronary bypass graft; Z95.820 Peripheral vascular angioplasty status with implants and grafts; Z90.710 Acquired absence of both cervix and uterus; Z88.5 Allergy status to narcotic agent; Z88.8 Allergy status to other drugs, medicaments and biological substances; Z79.82 Long term (current) use of aspirin; Z79.4 Long term (current) use of insulin; Z79.899 Other long term (current) drug therapy; Z82.49 Family history of ischemic heart disease and other diseases of the circulatory system ==

== ENCOUNTER → 2021-07-16 | Outpatient (CLI) | payer OTHER, BC | LOC: SJCVCIMAG 09:17 | PROVIDERS: ATTEND Internal Medicine | DX: I08.0 Rheumatic disorders of both mitral and aortic valves (principal); R94.31 Abnormal electrocardiogram [ECG] [EKG]; I45.10 Unspecified right bundle-branch block; I49.1 Atrial premature depolarization; I25.10 Atherosclerotic heart disease of native coronary artery without angina pectoris; R55 Syncope and collapse; I35.0 Nonrheumatic aortic (valve) stenosis; E78.5 Hyperlipidemia, unspecified; I13.0 Hypertensive heart and chronic kidney disease with heart failure and stage 1 through stage 4 chronic kidney disease, or unspecified chronic kidney disease; N18.30 Chronic kidney disease, stage 3 unspecified; I50.32 Chronic diastolic (congestive) heart failure; I65.23 Occlusion and stenosis of bilateral carotid arteries; I73.9 Peripheral vascular disease, unspecified; E11.51 Type 2 diabetes mellitus with diabetic peripheral angiopathy without gangrene; K21.9 Gastro-esophageal reflux disease without esophagitis; M10.9 Gout, unspecified; Z79.4 Long term (current) use of insulin; Z88.1 Allergy status to other antibiotic agents; Z88.5 Allergy status to narcotic agent; Z88.8 Allergy status to other drugs, medicaments and biological substances; Z79.82 Long term (current) use of aspirin; Z79.899 Other long term (current) drug therapy; Z79.891 Long term (current) use of opiate analgesic; Z95.1 Presence of aortocoronary bypass graft ==

== ENCOUNTER → 2021-08-05 | Outpatient (CLI) | payer OTHER, BC | LOC: SJCVCIMAG 09:46 | PROVIDERS: ATTEND Internal Medicine | DX: I65.23 Occlusion and stenosis of bilateral carotid arteries (principal); I70.203 Unspecified atherosclerosis of native arteries of extremities, bilateral legs; I77.9 Disorder of arteries and arterioles, unspecified; I25.10 Atherosclerotic heart disease of native coronary artery without angina pectoris; I13.0 Hypertensive heart and chronic kidney disease with heart failure and stage 1 through stage 4 chronic kidney disease, or unspecified chronic kidney disease; E11.22 Type 2 diabetes mellitus with diabetic chronic kidney disease; N18.30 Chronic kidney disease, stage 3 unspecified; I50.32 Chronic diastolic (congestive) heart failure; E78.00 Pure hypercholesterolemia, unspecified; E11.51 Type 2 diabetes mellitus with diabetic peripheral angiopathy without gangrene; E78.5 Hyperlipidemia, unspecified; K21.9 Gastro-esophageal reflux disease without esophagitis; M10.9 Gout, unspecified; Z79.4 Long term (current) use of insulin; Z79.82 Long term (current) use of aspirin; Z79.899 Other long term (current) drug therapy; Z82.49 Family history of ischemic heart disease and other diseases of the circulatory system ==

== ENCOUNTER → 2021-08-17 | Outpatient (CLI) | payer OTHER, BC ==
[~2021-08-17] VITALS: Ht 157.5 cm; Wt 81.2 kg
[2021-08-17 08:19] VITALS: BP 167/48
[2021-08-17 08:58] LABS: HEMATOCRIT 33.6 % (37.0-47.0); HEMOGLOBIN 10.6 gm/dL (12.0-15.0); MCH 29.6 pg (26.0-34.0); MCHC 31.6 g/dL (28.0-37.0); MCV 93.8 fL (80.0-100.0); RBC 3.59 mil/uL (4.20-5.00); RDW 18.1 % (10.5-14.5); WBC 6.5 thou/uL (4.0-11.0)
[2021-08-17 09:09] LABS: CALCIUM 8.9 mg/dL (8.5-10.1); CREATININE 1.4 mg/dL (0.6-1.0); POTASSIUM 4.2 mmol/L (3.5-5.1)
--- NOTE | 2021-08-18 07:15 | EKG ---
[place] [address] [facility] [place] [address] ELECTROCARDIOGRAM REPORT Name: RENE MOON Room #: [facility]#: [id number] Admission: 08/17/21 Attend Phys: Fredrick Issa MD Discharge: Date of : 45 Report #: [id number] [facility] Test Date: 2021-08-17 Test Time: 08:56:59 Pat Name: RENE MOON Department: Room: Gender: F Vp Compliance: [facility] : 1945 Requested By: Fredrick Issa Order Number: [id number] MD: Aquiles Sanches Measurements Intervals [place] Rate: 47 P: 70 DC: 206 QRS: -10 QRSD: 155 T: 54 QT: 508 QTc: 450 Interpretive Statements Sinus bradycardia Right bundle branch block LVH with secondary repolarization abnormality Compared to ECG 08/01/2020 12:58:44 Left ventricular hypertrophy now present Early repolarization now present Prolonged QT interval no longer present Electronically Signed On 08-18-2021 7:15:35 OPTICAL GOODS DRILL OPERATOR by Aquiles Sanches [email or web address] <ELECTRONICALLY SIGNED> By: Aquiles Sanches MD, [facility] 08/18/21 0715 0856 0856 Aquiles Sanches MD, [facility] /EPI
== END | disposition home or self-care (01) ==
LOC: CATH 07:31
PROVIDERS: ATTEND Nuclear Medicine Nuclear Cardiology
DX: I70.212 Atherosclerosis of native arteries of extremities with intermittent claudication, left leg (principal); I70.1 Atherosclerosis of renal artery; M79.605 Pain in left leg; M79.604 Pain in right leg; I13.0 Hypertensive heart and chronic kidney disease with heart failure and stage 1 through stage 4 chronic kidney disease, or unspecified chronic kidney disease; E11.22 Type 2 diabetes mellitus with diabetic chronic kidney disease; N18.30 Chronic kidney disease, stage 3 unspecified; I50.32 Chronic diastolic (congestive) heart failure; I25.10 Atherosclerotic heart disease of native coronary artery without angina pectoris; E78.5 Hyperlipidemia, unspecified; K21.9 Gastro-esophageal reflux disease without esophagitis; M19.90 Unspecified osteoarthritis, unspecified site; E66.9 Obesity, unspecified; Z98.890 Other specified postprocedural states; Z79.899 Other long term (current) drug therapy; Z90.710 Acquired absence of both cervix and uterus; Z95.1 Presence of aortocoronary bypass graft